=== PATIENT | male | born 1960 | race Caucasian/White ===

== ENCOUNTER → 2019-01-13 15:29 | Outpatient (CLI) | payer MEDICARE, MEDICAID, SELFPAY ==
--- NOTE | 2019-01-13 15:44 | CT_ITS ---
CT abdomen pelvis wo con INDICATION: Right flank pain ITS.REASON: RT SIDED LOW BACK PAIN,HEMATURIA ORDERING PHYSICIAN: Anders Hernandez MD PATIENT AGE: 58 years COMPARISON: CT abdomen September 2017 & May 2017 TECHNIQUE: No oral nor IV contrast utilized Axial images obtained with sagittal and coronal reformats. All CT scans at the facility use one or more dose reduction, viz: automated exposure control, ma/kV adjustment per patient size (including targeted exams where dose is matched to indication, i.e. head), or iterative reconstruction technique. FINDINGS: Lung bases are clear no active disease. Heart normal size. Abdomen/pelvis the lack of oral and IV contrast decreases sensitivity somewhat. Liver. No focal lesions. Diffuse fatty changes. Liver upper normal volume all... The generous length right lobe does measure 22 cm in length similar to previous study. Gallbladder. No calcified stones but suspect minimal sludge and debris. Spleen is enlarged measuring 16.5 cm length. Unchanged as prior study. Pancreas. Unremarkable on this noncontrast study. Stable. Stable Left Adrenal nodule/mass. Contains fat. 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 Bilobed character on coronal image. The lower portion is larger measuring up to 3.2 cm transverse 3.4 cm AP.. The upper portion smaller measuring 2.5 cm AP and height. Similar to previous study. This can be followed Right Adrenal. Stable. Although there is suggestion of a subtle stable 1 cm low-density adenoma its anterior aspect., Axial image 38, 39.. No appreciable change since September 2017 patient can be followed. TRACT : RIGHT KIDNEY: Tiny nonobstructive 2.2 mm calculus midportion right kidney. Otherwise right kidney collecting system appear normal. No hydronephrosis. Right ureter appears satisfactory to the bladder. Unremarkable. Mild stranding about right kidney similar to previous study LEFT KIDNEY small nonobstructive calculus midportion left kidney less than 3.5 mm Suspect a subtle 7 mm vague low-density cyst at mid left kidney. Just anterior to this is a small slightly hyperdense smudge like 8 mm focus ( axial image 64, coronal 41). No mass effect. Suspect reflects a small hemorrhagic cyst however is new since prior studies. Suggest follow-up CT protocol with contrast and delayed images within 6 months to confirm stable, or sooner if hematuria persists Left ureter is unremarkable. No retroperitoneal nor mesenteric nor pelvic adenopathy. Pelvis. Again note stable bilateral fat-containing inguinal hernias are also minimal amount of protrusion of the right aspect of the urinary bladder into the right inguinal hernia as before. Unchanged GI tract. Colonic diverticulosis. No diverticulitis. Moderate stool throughout the right and transverse colon.. No bowel dilatation or obstruction. Terminal ileum unremarkable. Low-lying cecum. Appendix normal. Small bowel unremarkable. Bones No remarkable osseous findings. Degenerative changes spine ... IMPRESSION:............ 1. No acute intra-abdominal or pelvic pathology. 2. Small punctate bilateral renal calculi;-but no urinary tract obstruction.. these small renal calculi are very slightly more evident than 2017 3. Left kidney there is a small 8 mm mild hyperdense smudge-like focus-likely small hemorrhagic cyst. This is become apparent since prior 2017 studies. Would suggest either renal ultrasound to confirm cyst; or if hematuria does persist with recommend follow-up CT protocol 6 months to confirm stability. 3.. Splenomegaly. Stable ... Liver. Diffuse Fatty changes, Borderline-to minimal hepatomegaly again noted. . 4. Colonic diverticulosis but no good evidence of diverticulitis. 5. Small stable bilateral inguinal hernias containing fat.
== END ==
PROVIDERS: PCP Internal Medicine Adolescent Medicine; Visit Provider Internal Medicine Adolescent Medicine
DX: R31.29 Other microscopic hematuria (principal); M54.5 Low back pain
CPT/HCPCS: 74176

== ENCOUNTER → 2019-04-02 12:03 | Outpatient (CLI) | payer MEDICARE, MEDICAID, SELFPAY ==
--- NOTE | 2019-04-02 12:12 | XR_ITS ---
XR chest 2V HISTORY: ITS.REASON: CHEST WALL PAIN ORDERING PHYSICIAN: Anders Hernandez MD PATIENT AGE: 58 years COMPARISON: 02/10/2013 FINDINGS: The cardiomediastinal silhouette and pulmonary vascularity are within normal limits. The lungs are clear without infiltrates, suspicious nodules, or pleural effusions. No acute bony abnormalities. IMPRESSION: Negative chest, no acute finding
== END ==
PROVIDERS: PCP Internal Medicine Adolescent Medicine; Visit Provider Internal Medicine Adolescent Medicine
DX: R07.89 Other chest pain (principal)
CPT/HCPCS: 71046

== ENCOUNTER → 2020-01-26 10:19 | Outpatient (CLI) | payer MEDICARE, MEDICAID, SELFPAY ==
--- NOTE | 2020-01-26 15:51 | PC.NURSE ---
[facility] was registered for a GXT stress bt was unable to complete due to Sally BALDERRAMA because patient has an abnormal EKG. Respiratory called portfolio director office to have them schedule a Lexiscan. Dr. Hernandez was notified.
== END ==
PROVIDERS: PCP Internal Medicine Adolescent Medicine; Visit Provider Internal Medicine Adolescent Medicine
DX: R07.9 Chest pain, unspecified (principal)

== ENCOUNTER → 2020-05-06 13:38 | Outpatient (CLI) | payer MEDICARE, MEDICAID, SELFPAY ==
--- NOTE | 2020-05-06 13:42 | CT_ITS ---
PROCEDURE: CT LUNG SCREENING CLINICAL INDICATION: H/O TOBACCO USE Sixty pack-year smoking history, asymptomatic for lung cancer COMPARISON: [facility] CT abdomen pelvis wo con from 01/13/2019 TECHNIQUE: The exam was performed on a GE Light Speed [address] scanner using 2.90 mGy CTDI. A low dose helical CT CHEST was performed on a multi-detector scanner. All CT scans at the facility use one or more dose reduction, viz: automated exposure control, ma/kV adjustment per patient size (including targeted exams where dose is matched to indication, i.e. head), or iterative reconstruction technique. The LDCT was performed in a facility that meets the criteria for the screening program. Data regarding this exam was submitted to ACR which is an approved registry. The order for this exam indicates that it came as a result of a lung cancer screening counseling shard decision-making visit that included all the elements required of such a visit including smoking cessation. The radiologist interpreting this exam meets the CMS criteria for the LDCT lung cancer screening program. The exam is reported using the Lung-RADS classification scale and reported to the ACR registry. NOTE: This study was performed for the specific purposes of lung cancer screening and is not an alternative to diagnostic chest CT. RADIATION DOSE: CTDI vol(CT dose Index-volume) = 2.90mG DLP (Dose Length Product) = 102.64 the mGcm Lung Rads Category: FINDINGS: 3 mm noncalcified nodule left apex image number 15. 3 mm nodule left upper lobe anteriorly image number 40 OTHER FINDINGS: Severe coronary artery calcifications. Changes of COPD. Bilateral adrenal enlargement. Mild thickening of the esophagus nonspecific. IMPRESSION: Lung rads category 2, benign Recommend annual screening LD CT Dictated by: Sidney Cornejo MD 05/12/2020 09:25 Electronically signed by Sidney Cornejo MD in [place] 05/12/2020 09:25
== END ==
PROVIDERS: PCP Internal Medicine Adolescent Medicine; Visit Provider Internal Medicine Adolescent Medicine
DX: Z87.891 Personal history of nicotine dependence (principal); Z12.2 Encounter for screening for malignant neoplasm of respiratory organs

== ENCOUNTER → 2020-08-09 11:50 | Outpatient (CLI) | payer MEDICARE, MEDICAID, SELFPAY ==
[2020-08-09 12:58] LABS: Chloride 103 mmol/L (98-107); Potassium 4.6 mmoL/L (3.5-5.1); Sodium 137 mmol/L (136-145)
[2020-08-09 13:00] LABS: Blood Urea Nitrogen 12 mg/dl (9-20); Estimated Glomerular Filt Rate 137 ml/min (>60); GFR (African American) 166 ML/MIN (>60)
[2020-08-09 13:01] LABS: Alanine Aminotransferase 25 U/L (12-78); Albumin Level 4.3 g/dl (3.5-5.0); Albumin/Globulin Ratio 1.5 (1.1-1.8); Alkaline Phosphatase 125 U/L (38-126); Anion Gap 13.6 mEq/L (5-15); Aspartate Amino Transferase 26 U/L (17-59); Bilirubin,Total 0.8 mg/dl (0.2-1.3); Calcium 9.4 mg/dl (8.4-10.2); Carbon Dioxide 25 mmol/L (22.0-30.0); Cholesterol 134 mg/dl (140-200); Globulin 2.8 g/dL (1.3-3.2); Glucose 154 mg/dl (74-100); Total Protein,Serum 7.1 g/dl (6.3-8.2); Triglycerides 370 mg/dl (30-150); VLDL Cholesterol 74 mg/dL (0-40)
[2020-08-09 13:02] LABS: Chol/HDL Ratio 4.3 (1-3.5); HDL Cholesterol 31 mg/dl (40-60)
[2020-08-09 13:04] LABS: Hemoglobin A1C 9.5 % (4.0-6.0)
== END ==
PROVIDERS: Visit Provider Internal Medicine Adolescent Medicine
DX: E11.9 Type 2 diabetes mellitus without complications (principal); E78.5 Hyperlipidemia, unspecified
CPT/HCPCS: 36415; 80053; 80061; 83036

== ENCOUNTER → 2020-09-10 15:16 | Outpatient (CLI) | payer MEDICARE, MEDICAID, SELFPAY ==
--- NOTE | 2020-09-10 15:31 | CT_ITS ---
PROCEDURE: CT ABDOMEN PELVIS WO CON CLINICAL INDICATION: LEFT FLANK PAIN Left flank pain with hematuria COMPARISON: CT ABDPELW/O CT ABD PELVIS W/O CONTRAST from 06/20/[address] abdomen pelvis wo con from 01/13/2019 TECHNIQUE: Axial images obtained with sagittal and coronal reformats. All CT scans at the facility use one or more dose reduction, viz: automated exposure control, ma/kV adjustment per patient size (including targeted exams where dose is matched to indication, i.e. head), or iterative reconstruction technique. FINDINGS: LOWER THORAX: Coronary artery calcification. Mild nonspecific thickening of the distal esophagus ABDOMEN & PELVIS: Fatty liver. There is a subtle area of decreased attenuation in the right hepatic lobe superiorly a image 35 series 601 at 7 mm nonspecific too small to categorize. The gallbladder has an unremarkable appearance. There is a subtle area of decreased attenuation in the central aspect of the spleen image 42 series 3 at 8 mm nonspecific not significantly changed. The left adrenal gland is enlarged containing fat and soft tissue density consistent with an adrenal myelolipoma. This measures up to 5 cm in transverse dimension and is slightly larger previously measuring 4.3 cm transverse. The right adrenal gland is slightly enlarged not significantly changed and may be due to adenomatous involvement. There are nonobstructing bilateral renal calculi. Previously noted hyperdensity in the upper pole left kidney is not demonstrated on today's study the pancreas has an unremarkable appearance. There is a small cyst projecting off the medial aspect of the right kidney measuring 1 cm. No evidence of appendicitis. There is diverticulosis of the descending and sigmoid colon. There is a mild amount of retained colonic feces. No evidence of diverticulitis. There are bilateral inguinal hernias containing fat. A small protrusion of the right side of the urinary bladder extends into the right inguinal hernia. No acute bony findings. There is a small sclerotic focus in the right femur in the intertrochanteric region. This is slightly more dense compared to the previous exams but not significantly changed in size possibly due to developing bone island. Left ileo bone island noted. IMPRESSION: 1. Left adrenal myelolipoma slightly more prominent. 2. Nonobstructing bilateral renal calculi. 3. Bilateral inguinal hernias. A small protrusion of the urinary bladder on the right extends into the right inguinal hernia. 4. Other nonacute findings as described above. Dictated by: Sidney Cornejo MD 09/10/2020 16:16 Sidney Cornejo MD in [place] 09/10/2020 16:16
[2020-09-10 15:47] LABS: Basophils # 0.1 K/mm3 (0-0.2); Basophils % 0.8 % (0.1-2.0); Eosinophils # 0.2 K/mm3 (0.0-0.4); Eosinophils % 1.5 % (0.1-12.0); Hemoglobin 15.8 g/dL (14.1-18.0); Lymphocytes # 2.8 K/mm3 (0.7-4.5); Lymphocytes % 28.8 % (10-50); Mean Corpuscular Hemoglobin 27.5 pg (27.0-31.2); Mean Corpuscular Volume 83.4 fl (80-94); Mean Platelet Volume 8.9 fl (7.4-10.4); Monocytes # 0.6 K/mm3 (0.1-1.0); Monocytes % 6.3 % (1.7-9.3); Neutrophils # 6.2 K/mm3 (1.8-7.8); Neutrophils % 62.5 % (37.0-80.0); Platelet Count 218 K/mm3 (142-424); Red Blood Count 5.75 M/mm3 (4.60-6.20); Red Cell Distribution Width 15.2 % (11.5-17.5); White Blood Count 9.8 K/mm3 (4.8-10.8)
[2020-09-10 18:07] LABS: Chloride 100 mmol/L (98-107); Potassium 4.4 mmoL/L (3.5-5.1); Sodium 135 mmol/L (136-145)
[2020-09-10 18:10] LABS: Alanine Aminotransferase 26 U/L (12-78); Albumin Level 4.5 g/dl (3.5-5.0); Albumin/Globulin Ratio 1.6 (1.1-1.8); Alkaline Phosphatase 115 U/L (38-126); Anion Gap 14.4 mEq/L (5-15); Aspartate Amino Transferase 27 U/L (17-59); Bilirubin,Total 0.7 mg/dl (0.2-1.3); Blood Urea Nitrogen 17 mg/dl (9-20); Calcium 9.8 mg/dl (8.4-10.2); Carbon Dioxide 25 mmol/L (22.0-30.0); Estimated Glomerular Filt Rate 115 ml/min (>60); GFR (African American) 139 ML/MIN (>60); Globulin 2.9 g/dL (1.3-3.2); Glucose 104 mg/dl (74-100); Lipase 60 U/L (23-300); Total Protein,Serum 7.4 g/dl (6.3-8.2)
== END ==
PROVIDERS: Visit Provider Internal Medicine Adolescent Medicine
DX: R10.9 Unspecified abdominal pain (principal)
CPT/HCPCS: 36415; 74176; 80053; 83690; 85025

== ENCOUNTER → 2021-03-10 14:39 | Outpatient (CLI) | payer MEDICARE, MEDICAID, SELFPAY ==
--- NOTE | 2021-03-10 15:35 | CT_ITS ---
PROCEDURE: CT ABDOMEN PELVIS WO CON CLINICAL INDICATION: DORSALGIA,UNSPECIFIED Right-sided flank pain COMPARISON: CT CT ABDOMEN PELVIS WO CON from 09/10/2020 TECHNIQUE: Axial images obtained with sagittal and coronal reformats. All CT scans at the facility use one or more dose reduction, viz: automated exposure control, ma/kV adjustment per patient size (including targeted exams where dose is matched to indication, i.e. head), or iterative reconstruction technique. FINDINGS: LOWER THORAX: Coronary artery calcifications are present. ABDOMEN & PELVIS: Fatty liver. No focal liver lesion identified. The spleen and pancreas have an unremarkable unenhanced appearance. There is a lobulated fat containing left adrenal mass which measures approximately 5 cm transverse, 5 cm AP, and at least 4 cm cephalad caudad consistent with an adrenal myelolipoma not significantly changed. There are nonobstructing bilateral renal calculi with a 4 mm stone in the upper pole of the right kidney and a 5 mm stone in the mid polar region of the left kidney. No intestinal obstruction or free air. No evidence of appendicitis. There is colonic diverticulosis but no evidence of diverticulitis. There are small bilateral inguinal hernias. Left inguinal hernia contains fat. The right inguinal hernia contains a knuckle of the urinary bladder. This is similar when compared to the previous exam. There are degenerative changes in the lumbar spine. Suspect small bone islands within the pelvis. IMPRESSION: 1. Overall no change with no acute finding. 2. No change fat containing left adrenal mass consistent with an adrenal myelolipoma 3. Nonobstructing bilateral renal calculi. 4. Small bilateral inguinal hernias. The right inguinal hernia contains a small protrusion of the urinary bladder in the left hernia contains fat. Dictated by: Sidney Cornejo MD 03/10/2021 16:26 Sidney Cornejo MD in [place] 03/10/2021 16:26
== END ==
PROVIDERS: PCP Internal Medicine Adolescent Medicine; Visit Provider Internal Medicine Adolescent Medicine
DX: R10.9 Unspecified abdominal pain (principal); M54.9 Dorsalgia, unspecified
CPT/HCPCS: 74176

== ENCOUNTER → 2021-06-09 11:58 | Outpatient (CLI) | payer MEDICARE, MEDICAID, SELFPAY ==
[2021-06-09 13:13] LABS: Hemoglobin A1C 8.7 % (4.0-6.0)
[2021-06-09 13:27] LABS: Anion Gap 15.2 mEq/L (5-15); Blood Urea Nitrogen 13 mg/dl (9-20); Carbon Dioxide 28 mmol/L (22.0-30.0); Chloride 99 mmol/L (98-107); Estimated Glomerular Filt Rate 114 ml/min (>60); GFR (African American) 138 ML/MIN (>60); Potassium 5.2 mmoL/L (3.5-5.1); Sodium 137 mmol/L (136-145)
[2021-06-09 13:28] LABS: Alanine Aminotransferase 48 U/L (12-78); Albumin Level 4.5 g/dl (3.5-5.0); Albumin/Globulin Ratio 1.6 (1.1-1.8); Alkaline Phosphatase 140 U/L (38-126); Aspartate Amino Transferase 49 U/L (17-59); Bilirubin,Total 0.9 mg/dl (0.2-1.3); Calcium 9.3 mg/dl (8.4-10.2); Chol/HDL Ratio 6.1 (1-3.5); Cholesterol 189 mg/dl (140-200); Globulin 2.8 g/dL (1.3-3.2); Glucose 258 mg/dl (74-100); HDL Cholesterol 31 mg/dl (40-60); Total Protein,Serum 7.3 g/dl (6.3-8.2)
[2021-06-09 13:39] LABS: Direct LDL Cholesterol 65.34 mg/dL (100-129)
[2021-06-09 13:40] LABS: Triglycerides 661 mg/dl (30-150)
== END ==
PROVIDERS: Visit Provider Internal Medicine Adolescent Medicine
DX: E11.9 Type 2 diabetes mellitus without complications (principal); Z79.84 Long term (current) use of oral hypoglycemic drugs
CPT/HCPCS: 36415; 80053; 80061; 83036

== ENCOUNTER → 2021-06-20 13:11 | Outpatient (CLI) | payer MEDICARE, MEDICAID, SELFPAY ==
--- NOTE | 2021-06-20 13:11 | CT_ITS ---
PROCEDURE: CT ABDOMEN PELVIS WO CON CLINICAL INDICATION: back pain Low back pain Bilateral flank pain COMPARISON: CT ABDPELW/O CT ABD PELVIS W/O CONTRAST from 06/20/[address] abdomen pelvis wo con from 01/13/[address] ABDOMEN PELVIS WO CON from 03/10/2021 TECHNIQUE: Axial images obtained with sagittal and coronal reformats. All CT scans at the facility use one or more dose reduction, viz: automated exposure control, ma/kV adjustment per patient size (including targeted exams where dose is matched to indication, i.e. head), or iterative reconstruction technique. FINDINGS: LOWER THORAX: Aortic valve and coronary artery calcifications. ABDOMEN & PELVIS: Fatty liver. No focal liver lesion identified. There is bilateral adrenal enlargement. Mixed fatty and soft tissue mass involves the left adrenal gland consistent with an adrenal myelolipoma at approximately 5 x 5 cm not significantly changed. There are nonobstructing bilateral renal calculi with a 3 mm stone in the upper pole on the right and 4 mm stone in the mid polar region on the left. There is a small area of decreased attenuation in the mid to lower aspect of the right kidney measuring approximately 7 mm with a faint peripheral rim of calcification. Which is not significantly changed. There is mild stranding of the perinephric renal fat. No intestinal obstruction or free air. No evidence of appendicitis. There is colonic diverticulosis but no evidence of diverticulitis. There is some mild thickening of the rectum. This is nonspecific. There are small bilateral fat containing inguinal hernias. The right aspect of the urinary bladder anteriorly extends into the right inguinal hernia at the hernia orifice. There are degenerative changes in the lower thoracic and lumbar spine.. There is mild sclerosis of the SI joints. A small sclerotic lesion involves the left ilium lower aspect measuring approximately 10 mm consistent with a small bone island. Faint area of increased density is present in the intertrochanteric region of the right femur nonspecific not significantly changed. IMPRESSION: 1. No change left adrenal mass consistent with an adrenal myelolipoma. 2. Bilateral renal calculi. No ureteral calculi or hydronephrosis. 3. Complex right renal lesion at approximately 7 mm with central decreased attenuation and a small peripheral rim of calcification. This may represent a complex renal cyst or neoplasm. Further evaluation could be obtained with renal CT without and with contrast. Continued 3 month follow-up is suggested. 4. Bilateral inguinal hernias containing fat. The anterior right aspect of the urinary bladder does extend into the orifice of the right inguinal hernia. Dictated by: Sidney Cornejo MD 06/21/2021 08:22 Sidney Cornejo MD in [place] 06/21/2021 08:22
== END ==
PROVIDERS: PCP Internal Medicine Adolescent Medicine; Visit Provider Urology
DX: M54.9 Dorsalgia, unspecified (principal); M54.5 Low back pain; N20.0 Calculus of kidney; E27.8 Other specified disorders of adrenal gland
CPT/HCPCS: 74176

== ENCOUNTER → 2021-07-21 11:56 | Outpatient (CLI) | payer MEDICARE, MEDICAID, SELFPAY ==
--- NOTE | 2021-07-21 | CA_ITS ---
APPROVED REPORT Exam: Pharmacologic Technologist: Lisa Sotelo, Ht: 5 ft 8 in Wt: 228 lbs BSA: 2.16 m2 HR: 78 bpm BP: 139/76 mmHg Medical History Medications: Gabapentin,,,,, Citalopram,,,,, TAMSULOSIN,,,,, Gemfibrozil,,,,, JaRDiance,,,,, AtorvaASTATIN,,,,, CefdinER,,,,, Stress Test Details Test: LEXISCAN HR Resting HR: 80 bpm Max Heart Rate (APMHR): 158.860376 bpm Max HR Achieved: 106 bpm Target HR (85% APMHR): 134.709213 bpm % of APMHR: 67.09 Recovery HR: 90 bpm BP Resting BP: 139/76 mmHg Max BP: 151/72 mmHg Recovery BP: 137.0/74.0 mmHg ECG Resting ECG: NSR, ST-T abns inferiorly and laterally Clinical Exercise duration: 04:00 min Highest Stage Achieved: Exercise capacity: 1.0 METs Stress ECG Conclusion Symptoms: Mild SOA and malaise, No CP. Arrhythmias/Ectopy: None ST-T Changes: Exaggeration of baseline ST-T abns. Conclusion: Non-diagnostic Lexiscan stress. Myoview images reported separately. Electronically signed by : Hamlet Ernst MD 07/21/2021 15:04:40
--- NOTE | 2021-07-21 11:59 | NM_ITS ---
APPROVED REPORT Exam: Nuclear Stress Test Indication: Chest pain, SOB, DM, Tobacco use Patient Location: Outpatient Stress Tech: Conchis Ly [place] Tech:CHASE Alcantar RT(R)(N) Ht: 5 ft 8 in Wt: 227 lbs HR: 80 bpm BP: 139/76 mmHg BSA: 2.16 m2 BMI: 34.5 History: Chest pain, SOB, DM, Tobacco use Procedure: Patient received a 0.4 mg of intravenous Lexiscan, resting heart rate 80 bpm, resting blood pressure 139/76 mmHg, with Lexiscan maximum heart rate achived was 106 bpm which is Less than 85 % of the maximum predicted heart rate and blood pressure was 151/72 mmHg. With Lexiscan, patient denied any complaint of chest pain. Electrocardiogram Resting electrocardiogram shows sinus rhythm, with Lexiscan there is less than 1.[address] segment depression noted from the baseline EKG. The EKG portion of the Lexiscan Myoview is nondiagnostic. Cardiac Stress and Resting SPECT Images: Cardiac Stress and Resting SPECT images were obtained using technetium 99m Myoview 32.8 mCi stress and 10.60 mCi at rest. Gated SPECT for analysis of segmental wall motion and calculation of the ejection fraction also done. Prone images were also obtained. Cardiac stress and resting SPECT images show mild fixed defect in the inferior wall with normal contractility gated SPECT is likely secondary to soft tissue attenuation, no reversible ischemia seen. Computer derived ejection fraction is 54% with no regional wall motion abnormality, right ventricle is normal size and contractility. Conclusion: 1. The EKG portion of the Lexiscan is nondiagnostic. 2. Diagnostic evidence of reversible ischemia seen, computer derived ejection fraction is 54% with no regional wall motion abnormality, right ventricle is normal size and contractility. 3. Likely normal Lexiscan Myoview study. Electronically signed by : Halmet Ernst MD 07/21/2021 16:16:07
--- NOTE | 2021-07-21 15:23 | HMH.ITSHM ---
Current Home Medications as stated by this patient Annie Garcia or b2b sales representative. []GEMFIBROZIL TAMSULOSIN GABAPENTIN EMPAGLIFLOZIN CITALOPRAM CEFDINIR ATORVASTATIN
== END ==
PROVIDERS: PCP Internal Medicine Adolescent Medicine; Visit Provider Internal Medicine Adolescent Medicine
DX: I20.8 Other forms of angina pectoris (principal)
CPT/HCPCS: 78452; 93017; A9502; J2785

== ENCOUNTER → 2021-11-03 09:25 | Outpatient (CLI) | payer MEDICARE, MEDICAID, SELFPAY ==
[2021-11-03 09:52] LABS: Basophils # 0.1 K/mm3 (0-0.2); Basophils % 1.2 % (0.1-2.0); Eosinophils # 0.2 K/mm3 (0.0-0.4); Eosinophils % 1.8 % (0.1-12.0); Hemoglobin 15.5 g/dL (14.1-18.0); Lymphocytes # 2.2 K/mm3 (0.7-4.5); Lymphocytes % 22.2 % (10-50); Mean Corpuscular HGB Conc 34.4 g/dL (31.8-35.4); Mean Corpuscular Hemoglobin 27.4 pg (27.0-31.2); Mean Corpuscular Volume 79.7 fl (80-94); Mean Platelet Volume 9.3 fl (7.4-10.4); Monocytes # 0.6 K/mm3 (0.1-1.0); Monocytes % 5.6 % (1.7-9.3); Neutrophils # 6.8 K/mm3 (1.8-7.8); Neutrophils % 69.2 % (37.0-80.0); Platelet Count 231 K/mm3 (142-424); Red Blood Count 5.64 M/mm3 (4.60-6.20); Red Cell Distribution Width 15.4 % (11.5-17.5); White Blood Count 9.8 K/mm3 (4.8-10.8)
[2021-11-03 10:44] LABS: Alanine Aminotransferase 45 U/L (12-78); Albumin Level 4.2 g/dl (3.5-5.0); Albumin/Globulin Ratio 1.6 (1.1-1.8); Alkaline Phosphatase 153 U/L (38-126); Anion Gap 10.5 mEq/L (5-15); Aspartate Amino Transferase 44 U/L (17-59); Bilirubin,Total 0.9 mg/dl (0.2-1.3); Blood Urea Nitrogen 12 mg/dl (9-20); Calcium 9.2 mg/dl (8.4-10.2); Carbon Dioxide 28 mmol/L (22.0-30.0); Chloride 98 mmol/L (98-107); Chol/HDL Ratio 5.7 (1-3.5); Cholesterol 183 mg/dl (140-200); Estimated Glomerular Filt Rate 137 ml/min (>60); GFR (African American) 165 ML/MIN (>60); Globulin 2.6 g/dL (1.3-3.2); Glucose 266 mg/dl (74-100); HDL Cholesterol 32 mg/dl (40-60); Potassium 4.5 mmoL/L (3.5-5.1); Sodium 132 mmol/L (136-145); Total Protein,Serum 6.8 g/dl (6.3-8.2)
[2021-11-03 10:49] LABS: Triglycerides 454 mg/dl (30-150)
[2021-11-03 10:54] LABS: NT Pro Brain Natriuretic Pep. 498 pg/mL (0-125)
[2021-11-03 10:55] LABS: Direct LDL Cholesterol 76.51 mg/dL (100-129)
[2021-11-03 11:15] LABS: Thyroid Stimulating Hormone 3.65 uIU/mL (0.465-4.68)
[2021-11-03 11:56] LABS: Hemoglobin A1C 10.6 % (4.0-6.0)
== END ==
PROVIDERS: Visit Provider Internal Medicine Adolescent Medicine
DX: R06.02 Shortness of breath (principal); E11.9 Type 2 diabetes mellitus without complications; E78.5 Hyperlipidemia, unspecified
CPT/HCPCS: 36415; 80053; 80061; 83036; 83880; 84443; 85025

== ENCOUNTER → 2021-11-07 09:42 | Outpatient (CLI) | payer MEDICARE, MEDICAID, SELFPAY ==
[2021-11-07 10:02] LABS: Basophils # 0.1 K/mm3 (0-0.2); Basophils % 0.9 % (0.1-2.0); Eosinophils # 0.2 K/mm3 (0.0-0.4); Eosinophils % 1.8 % (0.1-12.0); Hematocrit 44.2 % (42.0-52.0); Hemoglobin 15.3 g/dL (14.1-18.0); Lymphocytes # 2.3 K/mm3 (0.7-4.5); Lymphocytes % 22.6 % (10-50); Mean Corpuscular HGB Conc 34.6 g/dL (31.8-35.4); Mean Corpuscular Hemoglobin 27.7 pg (27.0-31.2); Mean Corpuscular Volume 80.2 fl (80-94); Mean Platelet Volume 9.2 fl (7.4-10.4); Monocytes # 0.5 K/mm3 (0.1-1.0); Monocytes % 5.2 % (1.7-9.3); Neutrophils % 69.5 % (37.0-80.0); Platelet Count 230 K/mm3 (142-424); Red Blood Count 5.51 M/mm3 (4.60-6.20); Red Cell Distribution Width 14.6 % (11.5-17.5)
[2021-11-07 10:50] LABS: Chloride 96 mmol/L (98-107); Potassium 4.5 mmoL/L (3.5-5.1); Sodium 133 mmol/L (136-145)
[2021-11-07 10:53] LABS: Blood Urea Nitrogen 11 mg/dl (9-20); Estimated Glomerular Filt Rate 114 ml/min (>60); GFR (African American) 138 ML/MIN (>60)
[2021-11-07 10:54] LABS: Anion Gap 12.5 mEq/L (5-15); Carbon Dioxide 29 mmol/L (22.0-30.0); Glucose 288 mg/dl (74-100)
== END ==
PROVIDERS: Visit Provider Urology
DX: E11.9 Type 2 diabetes mellitus without complications (principal); E78.5 Hyperlipidemia, unspecified; I20.9 Angina pectoris, unspecified; R06.00 Dyspnea, unspecified; R07.9 Chest pain, unspecified; R42 Dizziness and giddiness; R94.31 Abnormal electrocardiogram [ECG] [EKG]; Z01.812 Encounter for preprocedural laboratory examination; Z11.52 Encounter for screening for COVID-19
CPT/HCPCS: 36415; 80048; 85025; C9803; U0003; U0005

== ENCOUNTER 2021-11-08 07:47 | Day surgery (SDC) | payer MEDICARE, MEDICAID, SELFPAY ==
[2021-11-08] VITALS (15 sets, daily range): BP systolic 93–156; BP diastolic 59–97; PULSE 72–90; RESP 16–20; TEMP 36.9; O2SAT 93–97; BMI 34.0
--- NOTE | 2021-11-08 | IR_ITS ---
APPROVED REPORT Patient Location: Outpatient PROCEDURES Left heart catheterization Left ventriculogram Selective coronary angiogram Drug-eluting stent deployment to the mid dominant right coronary INDICATION Coronary artery disease, Unacceptable angina pectoris Informed consent was obtained prior to the procedure. COMPLICATIONS NONE Estimated Blood Loss: LESS THAN 10 ML TECHNIQUE One percent lidocaine used to anesthetize the right anterior aspect of the wrist. The right radial artery was accessed via the Seldinger technique. A 6 Maori sheath was placed in the right radial artery. 2.5 mg of verapamil, 800 mcg of nitroglycerin, 1mg Lidocaine and 5000 U Heparin were given through the arterial sheath. The 51.com 1 catheter was also used to perform left heart catheterization, left ventriculogram and selective coronary angiogram. At the end of the procedure the guide catheter was placed in the dominant right coronary artery and a Choice PT extra-support wire was used to attempt recannulization of the chronically occluded artery. The wire very easily passed through the chronic occlusion therefore therapeutic heparin was administered giving a therapeutic ACT. A 3.5 x 18 mm resolute [place] stent was deployed at 18 noemy reducing the chronic occlusion to 0%. OSCAR 0 flow was present at the beginning of the procedure with OSCAR-3 flow at the end of the procedure. Then the procedure the apparatus was removed the sheath was removed good hemostasis was achieved using TR banding patient was transferred to the postop putting in stable condition ANGIOGRAPHIC RESULTS The left main artery Normal The left anterior descending artery Is proximally normal then has a mid vessel 40 to 50% concentric stenosis between the first and second septal apprenticeship representative. The circumflex artery Nondominant and has a 50% stenosis in a 2.25 mm first obtuse marginal artery The right coronary artery Is dominant and chronically occluded just distal to the RV marginal. The distal vessel has scant [id number] collaterals The MANCIA ventriculogram reveals Preserved at 55% The left ventricular end-diastolic pressure 10 mmHg IMPRESSION Moderate coronary artery disease in the mid LAD and mid small to moderate-sized first obtuse marginal artery Chronically occluded dominant right coronary artery Successful percutaneous revascularization of a chronically occluded right coronary artery 100% occlusion reduced to 0% with 1 drug-eluting stent Preserved ejection fraction with normal LVEDP PLAN 1. Brilinta 90 twice daily plus aspirin 81 mg daily 2. High intensity statin therapy to achieve LDL of 55 3. Avoidance of tobacco products 4. Cardiac rehabilitation 5. Risk factor modification 6. Avoidance of tobacco products Electronically signed by : Mio Samuel MD 11/08/2021 11:33:15
--- NOTE | 2021-11-08 07:52 | CA_ITS ---
APPROVED REPORT EXAM: Comprehensive 2D, Doppler, and color-flow Echocardiogram Railroad Cook: Helena Bowers RT(R) Ht: 5 ft 8 in Wt: 224lbs BSA: 2.14 BP: 136/75 mmHg Indications: CP, COPD, smoker, DM, SOB, hyperlipidemia, dizziness, abn EKG 2D Dimensions LVOT 2.05 cm (M/F) 1.5-2.5 LVEF (Crowley's) 53.80 % M: 52 - 72 LV Volume 115.70 mL M: 62 - 150 LV Volume Index 54.06 mL/m2 M: 34 - 74 LA Volume 30.30 mL LA Volume Index 14.15 mL/m2 (M/F) 16-34 M-Mode Dimensions RVDd 3.10 cm (0.9-2.6) LA Diam 3.62 cm (1.9-4.0) LVDd 4.14 cm (3.5-5.7) Ao Diam 2.65 cm (2.0-3.7) LVDs 3.46 cm (3.5-5.7) IVSd 0.86 cm (0.6-1.1) PWd 0.89 cm (0.6-1.1) EF (Teich) 34.80% FS 16.40% EDV (Teich) 75.90 mL ESV (Teich) 49.50 mL LV Diastology E Decel Time 220.00 (160-240 msec) E/A Ratio 1.1 MED E' 5.80 (< 7 cm/sec) E'/MED E' Ratio 16.81 (>14) LAT E' 7.60 (<10 cm/sec) E/LAT E' Ratio 12.83 (>14) Aortic Valve LVOT Max 118.00 (70-110 cm/s) LVOT VTI 24.13 cm AoV Peak Liam. 182.00 (50-130 cm/s) AO Peak GR. 13.20 mmHg AO Mean GR. 6.40 (<5 mmHg) AO VTI 34.41 (18-25 cm) GRABIEL (VTI) 2.31 (2.5-4.5 cm2) Mitral Valve MV E Max Liam. 98.00 (40-130 cm/s) MV A Velocity 88.00 (40-130 cm/s) E/A Ratio 1.11 MV Decel. Time 220.00 (160-240 ms) MV PHT 64.00 ms Left Ventricle Left atrium is mildly enlarged, left ventricle is normal size, mild concentric left ventricular hypertrophy, visually estimated ejection fraction 55% with no regional wall motion abnormality, grade 1 diastolic dysfunction seen without tissue Doppler evidence of raise left atrial pressure. Right Ventricle Right atrium and right ventricle are mildly enlarged with normal contractility. Aortic Valve Aortic valve is thickened and calcified without Doppler evidence of aortic stenosis or aortic insufficiency. Mitral Valve Mitral valve is grossly normal, there is trace mitral regurgitation. Tricuspid Valve Tricuspid grossly normal, there is trace tricuspid regurgitation, tricuspid regurgitation jet velocity is inadequate for calculation of the right ventricular systolic pressure. Pulmonic Valve Pulmonic valve is poorly visualized. Great Vessels Aortic root is normal size. Inferior vena cava normal size with normal inspiratory collapse. Pericardium No significant pericardial effusion noted. Conclusion #1. Mild biatrial enlargement, normal left ventricular size, mild concentric left ventricular hypertrophy, visually estimated ejection fraction 55% with no regional wall motion abnormality, grade 1 diastolic dysfunction seen without tissue Doppler evidence of raise left atrial pressure. #2. Mildly enlarged right ventricle with normal contractility. #3. Trace mitral and tricuspid regurgitation. #4. No significant pericardial effusion noted. #5. Inferior vena cava normal size with normal inspiratory collapse. Electronically signed by : Hamlet Ernst MD 11/08/2021 19:28:57
[2021-11-08 13:26] LABS: CATHL Activated Clotting Time 267 SEC (74-125)
--- NOTE | 2021-11-08 15:00 | HMH.PHACLD ---
Annie Garcia has received discharge medication counseling on the following medications: PATIENT IS CURRENTLY TAKING ATORVASTATIN 80 MG HS. ADDING BRILINTA 90 MG BID, ASPIRIN 81 MG DAILY, BISOPROLOL 5 MG DAILY, AND LOSARTAN 25 MG DAILY POST STENTING.
== END 2021-11-08 15:05 | disposition home or self-care (01) ==
LOC: CATHLAB 07:49
PROVIDERS: PCP Internal Medicine Adolescent Medicine; Visit Provider Internal Medicine
DX: E11.9 Type 2 diabetes mellitus without complications (principal); E78.5 Hyperlipidemia, unspecified; I25.110 Atherosclerotic heart disease of native coronary artery with unstable angina pectoris; R06.00 Dyspnea, unspecified; R07.9 Chest pain, unspecified; R42 Dizziness and giddiness; R94.31 Abnormal electrocardiogram [ECG] [EKG]; F17.210 Nicotine dependence, cigarettes, uncomplicated; Z79.01 Long term (current) use of anticoagulants; Z79.899 Other long term (current) drug therapy; I10 Essential (primary) hypertension; Z79.84 Long term (current) use of oral hypoglycemic drugs; I25.82 Chronic total occlusion of coronary artery
CPT/HCPCS: 85347; 92928; 93306; 93458; 99152; C1725; C1769; C1876; C9600; J1644; Q9967

== ENCOUNTER 2022-09-04 18:30 | Observation (INO) | payer MEDICARE, MEDICAID, SELFPAY ==
[2022-09-04 17:43] VITALS: BP 154/87; PULSE 103; RESP 16; TEMP 37.2; O2SAT 98; BMI 34.8
--- NOTE | 2022-09-04 19:28 | PC.NURSE ---
pt ambulated to floor @ 191
[2022-09-04 19:34] LABS: Basophils # 0.2 K/mm3 (0-0.2); Basophils % 2.4 % (0.1-2.0); Eosinophils # 0.2 K/mm3 (0.0-0.4); Eosinophils % 2.4 % (0.1-12.0); Hemoglobin 14.9 g/dL (14.1-18.0); Lymphocytes # 2.5 K/mm3 (0.7-4.5); Lymphocytes % 24.5 % (10-50); Mean Corpuscular HGB Conc 34.6 g/dL (31.8-35.4); Mean Corpuscular Hemoglobin 28.7 pg (27.0-31.2); Mean Corpuscular Volume 82.9 fl (80-94); Mean Platelet Volume 9.3 fl (7.4-10.4); Monocytes # 0.4 K/mm3 (0.1-1.0); Monocytes % 4.1 % (1.7-9.3); Neutrophils # 6.7 K/mm3 (1.8-7.8); Neutrophils % 66.6 % (37.0-80.0); Platelet Count 210 K/mm3 (142-424); Red Blood Count 5.19 M/mm3 (4.60-6.20); Red Cell Distribution Width 15.5 % (11.5-17.5); White Blood Count 10.1 K/mm3 (4.8-10.8)
[2022-09-04 19:36] LABS: Chloride 98 mmol/L (98-107); Potassium 3.9 mmoL/L (3.5-5.1); Sodium 133 mmol/L (136-145)
[2022-09-04 19:39] LABS: Anion Gap 13.9 mEq/L (5-15); Blood Urea Nitrogen 7 mg/dl (9-20); Calcium 8.5 mg/dl (8.4-10.2); Carbon Dioxide 25 mmol/L (22.0-30.0); Creatinine Clearance Estimated 111 mL/min (50-200); Estimated Glomerular Filt Rate 168 ml/min (>60); GFR (African American) 203 ML/MIN (>60); Glucose 374 mg/dl (74-100); Magnesium 1.6 mg/dl (1.6-2.3)
[2022-09-04 20:00] VITALS: BP 137/75; PULSE 100; PULSE 95; RESP 16; TEMP 36.7; O2SAT 97
[2022-09-04 20:43] LABS: POC Glucose,Bedside 332 (70-110)
[2022-09-04 21:03] LABS: Troponin I < 0.01 ng/ml (0.00-0.034)
[2022-09-05] VITALS (20 sets, daily range): BP systolic 113–159; BP diastolic 60–81; PULSE 70–90; RESP 16–22; TEMP 36.3–36.7; O2SAT 95–100; BMI 34.7
--- NOTE | 2022-09-05 | IR_ITS ---
APPROVED REPORT Patient Location: Inpatient Cut Filer: CHASE Lai RT (R) PROCEDURES Left heart catheterization Left ventriculogram Selective coronary angiogram Drug-eluting stent deployment to the proximal and mid LAD INDICATION Coronary artery disease, Unstable angina Informed consent was obtained prior to the procedure. COMPLICATIONS None Estimated Blood Loss: Less than 10 mls TECHNIQUE One percent lidocaine used to anesthetize the right anterior aspect of the wrist. The right radial artery was accessed via the Seldinger technique. A 6 Maldivian sheath was placed in the right radial artery. 2.5 mg of verapamil, 800 mcg of nitroglycerin, 1mg Lidocaine and 5000 U Heparin were given through the arterial sheath. The papa catheter was also used to perform left heart catheterization, left ventriculogram and selective coronary angiogram. At the end the diagnostic angiogram therapeutic heparin was administered giving a therapeutic ACT and the guide catheter was placed in the left main artery followed by a Choice PT extra-support wire. A 3 mm x 38 mm resolute Stefan stent was placed throughout the proximal to mid LAD and deployed at 22 noemy reducing the severe stenosis to 0%. OSCAR-3 flow was present before and after the procedure. At the end the procedure the apparatus was removed the sheath was removed and hemostasis was achieved using TR banding patient was transferred to the postop putting a stable addition ANGIOGRAPHIC RESULTS The left main artery Normal The left anterior descending artery Has proximal 10% luminal irregularities followed by mid vessel concentric 70 to 80% stenosis flanked by 40 and 50% stenoses The circumflex artery Is nondominant and gives rise to a large first obtuse marginal artery which has a proximal 60 mid vessel 60 to 70% and a distal 50% stenosis The right coronary artery Is a dominant vessel and has a mid vessel 30 to 40% concentric stenosis. The distal right coronary artery stent is widely patent with excellent proximal distal transitioning. The posterior descending artery is 2 mm in diameter and has 50 to 60% stenoses The MANCIA ventriculogram reveals Normal 60% The left ventricular end-diastolic pressure 10 to 15 mmHg IMPRESSION Severe mid LAD disease as described above with successful stenting reducing all disease to less than 10% with 1 contiguous drug-eluting stent Normal ejection fraction Borderline LVEDP PLAN 1. Dual antiplatelet therapy 2. Risk factor modification 3. Cardiac rehabilitation 4. LDL less than 55 to be achieved with high intensity statin 5. Continue medical management for the circumflex artery. 6. If patient continues to have angina pectoris I did recommend a stress test to determine if the circumflex artery stenosis has hemodynamic significance I would also recommend maximizing antianginal medications Electronically signed by : Mio Samuel MD 09/05/2022 14:21:43
[2022-09-05 00:17] LABS: Troponin I < 0.01 ng/ml (0.00-0.034)
--- NOTE | 2022-09-05 05:33 | PC.NURSE ---
pt is A&OX4. ambulates to and from bathroom independently. no complaints of chest pain since arrival. NSR on tele. FSBS of 292, insulin given per mar. CB in reach.
[2022-09-05 05:54] LABS: POC Glucose,Bedside 292 (70-110)
--- NOTE | 2022-09-05 08:20 | EXP.HP ---
History of Present Illness *Admission Date: 09/04/22 *Reason for visit:: Chest pain *History of present illness: 62-year-old white male with history of poorly controlled diabetes, coronary disease with stent placement in the past and a history of heavy nicotine dependence who presented to my office ostensibly for an abscess and cyst underneath his right axilla. However he noted in the visit that he was having chest pains that were in his substernal area and radiating into his left arm. He stated that they were not really exercise associated but they felt just like they did before I got my stent. EKG showed baseline changes but also some new ST/T wave nonspecific changes in the inferior leads and he was admitted to hospital for angina work-up and cardiology consultation. [facility] Medical History (Updated 09/05/22 @ 08:23 by Anders Hernandez MD) CAD (coronary artery disease) Diabetes mellitus, type 2 Dyspnea HTN (hypertension) Surgical History (Updated 09/04/22 @ 20:21 by Cherri Montes RN) History of knee replacement History of right heart catheterization (RHC) Family History (Updated 09/04/22 @ 20:21 by Cherri Montes RN) Family history of acute heart failure Family history of cancer Social History Smoking Status: Current every day smoker tobacco type: cigarettes packs per day: 1 second hand exposure: No alcohol intake: never substance use type: denies use current occupational status: unemployed Travel in the last 8 weeks: Inside the [place] household members: significant other housing: house current occupational exposures/hazards: No Review of Systems Review of Systems Review of systems:: pertinent systems reviewed and negative unless documented below Meds Home Medications and Allergies Home Medications Medication Instructions Recorded Confirmed Type atorvastatin 80 mg tablet 80 mg PO HS Cholesterol 02/12/20 09/05/22 History citalopram 20 mg tablet 20 mg PO DAILY Depression 02/12/20 11/15/21 History gabapentin 300 mg capsule 300 mg PO DAILY Pain 02/12/20 11/15/21 History gemfibrozil 600 mg tablet 600 mg PO HS Cholesterol 02/12/20 09/05/22 History tamsulosin 0.4 mg capsule 0.4 mg PO HS PROSTATE 02/12/20 11/15/21 History empagliflozin 25 mg-linagliptin 5 1 tab PO DAILY Diabetes 11/03/21 09/05/22 History mg tablet aspirin 81 mg tablet,delayed 81 mg PO DAILY Heart disease 11/08/21 11/15/21 History release bisoprolol fumarate 5 mg tablet 5 mg PO DAILY Heart disease 11/08/21 09/05/22 History ticagrelor 90 mg tablet 90 mg PO BID Heart disease 11/08/21 09/05/22 History New Prescriptions to Start Prescriptions: Allergies Allergy/AdvReac Type Severity Reaction Status Date / Time sulfamethoxazole Allergy Severe S-SKIN Verified 11/15/21 14:24 [From Bactrim] ERUPTIONS (BLISTERS) trimethoprim [From Bactrim] Allergy Severe S-SKIN Verified 11/15/21 14:24 ERUPTIONS (BLISTERS) Exam Data for Last 24 hours Vital signs and Labs for Last 24 Hours: Temp Pulse Resp BP Pulse Ox 98 F 70 16 138/75 97 09/05/22 03:54 09/05/22 04:00 09/05/22 03:54 09/05/22 03:54 09/05/22 03:54 Laboratory Results - last 24 hr 09/04/22 19:14: WBC 10.1, RBC 5.19, Hgb 14.9, Hct 43.0, MCV 82.9, MCH 28.7, MCHC 34.6, RDW 15.5, Plt Count 210, MPV 9.3, Neut % (Auto) 66.6, Lymph % (Auto) 24.5, Payne % (Auto) 4.1, Eos % (Auto) 2.4, Baso % (Auto) 2.4 H, Neut # (Auto) 6.7, Lymph # (Auto) 2.5, Payne # (Auto) 0.4, Eos # (Auto) 0.2, Baso # (Auto) 0.2 09/04/22 19:14: Sodium 133 L, Potassium 3.9, Chloride 98, Carbon Dioxide 25, Anion Gap 13.9, BUN 7 L, Creatinine 0.50 L, Estimated Creat Clear 111, Estimated GFR 168, Est GFR ( Amer) 203, Glucose 374 H, Calcium 8.5, Magnesium 1.6 09/04/22 19:14: Troponin I < 0.01 09/04/22 20:29: POC Glucose 332 H* 09/04/22 23:43: Troponin I < 0.01 09/05/22 05:12: POC Glucose 292 H I & O for Last 24 hours: Intake & Output 09/02/22
--- NOTE | 2022-09-05 08:36 | EXP.PN ---
Subjective *Date: 09/05/22 *Time: 08:36 Interval history: Patient slept well overnight. No chest pains noted. Exam Data for Last 24 hours Vital signs and Labs for Last 24 Hours: Temp Pulse Resp BP Pulse Ox 98 F 70 16 138/75 97 09/05/22 03:54 09/05/22 04:00 09/05/22 03:54 09/05/22 03:54 09/05/22 03:54 Laboratory Results - last 24 hr 09/04/22 19:14: WBC 10.1, RBC 5.19, Hgb 14.9, Hct 43.0, MCV 82.9, MCH 28.7, MCHC 34.6, RDW 15.5, Plt Count 210, MPV 9.3, Neut % (Auto) 66.6, Lymph % (Auto) 24.5, [place] % (Auto) 4.1, Eos % (Auto) 2.4, Baso % (Auto) 2.4 H, Neut # (Auto) 6.7, Lymph # (Auto) 2.5, [place]enden # (Auto) 0.4, Eos # (Auto) 0.2, Baso # (Auto) 0.2 09/04/22 19:14: Sodium 133 L, Potassium 3.9, Chloride 98, Carbon Dioxide 25, Anion Gap 13.9, BUN 7 L, Creatinine 0.50 L, Estimated Creat Clear 111, Estimated GFR 168, Est GFR ( Amer) 203, Glucose 374 H, Calcium 8.5, Magnesium 1.6 09/04/22 19:14: Troponin I < 0.01 09/04/22 20:29: POC Glucose 332 H* 09/04/22 23:43: Troponin I < 0.01 09/05/22 05:12: POC Glucose 292 H I & O for Last 24 hours: Intake & Output 09/02/22 09/03/22 09/04/22 09/05/22 11:59 11:59 11:59 11:59 Intake Total 222 / 222 Output Total 0 / 0 Balance 222 / 222 Weight 229 lb 0.964 oz Microbiology Reports for the Last 24 Hours: Microbiology 09/04/22 00:00 Nasopharyngeal Coronavirus COVID-19 PCR - Final Constitutional Comments: Heart rate regular, no murmurs. No edema noted. Abdomen soft. Alert and oriented x3. Sebaceous cyst in the right axilla has actually improved with much less swelling and minimal redness. Assessment and Plan *Assessment and plan (1) CAD (coronary artery disease): Status: Acute Qualifiers: Coronary Disease-Associated Artery/Lesion type: [place] artery [place] vs. transplanted heart: [place] heart Associated angina: without angina Qualified Code(s): I25.10 - Atherosclerotic heart disease of [place] coronary artery without angina pectoris Category: Medical Code(s): I25.10 - Atherosclerotic heart disease of [place] coronary artery without angina pectoris (2) Unstable angina: Status: Acute Category: Medical Code(s): I20.0 - Unstable angina (3) Sebaceous cyst of axilla: Status: Acute Category: Medical Code(s): L72.3 - Sebaceous cyst Plan 1. Given CAD and his description of the pain we will admit to hospital for serial troponins --these have returned negative. EKG and echocardiogram have been done, cardiology consultation as he follows with [facility] cardiology. 2. Sebaceous cyst-does not appear to be infected but could be superficial cellulitis. Continue hot packs and Rocephin, oral antibiotics on discharge
--- NOTE | 2022-09-05 08:51 | PC.NURSE ---
Hot compress placed, and will continue to replace.
--- NOTE | 2022-09-05 09:13 | EXP.CARD.CON ---
History of Present Illness History of Present Illness Consult date: 09/05/22 Requesting physician: Anders Hernandez Consult reason: chest pain Chief complaint: chest pain Additional Medical History:: Significant medical hx: CAD-Ellis to rca 11/15 HLD Current smoker HLD Grade 1 DD DM COPD 10/2021 cath IMPRESSION Moderate coronary artery disease in the mid LAD and mid small to moderate-sized first obtuse marginal artery Chronically occluded dominant right coronary artery Successful percutaneous revascularization of a chronically occluded right coronary artery 100% occlusion reduced to 0% with 1 drug-eluting stent Preserved ejection fraction with normal LVEDP PLAN 1. Brilinta 90 twice daily plus aspirin 81 mg daily 2. High intensity statin therapy to achieve LDL of 55 3. Avoidance of tobacco products 4. Cardiac rehabilitation 5. Risk factor modification 6. Avoidance of tobacco products Echo 11/15 Conclusion #1.? Mild biatrial enlargement, normal left ventricular size, mild concentric left ventricular hypertrophy, visually estimated ejection fraction 55% with no regional wall motion abnormality, grade 1 diastolic dysfunction seen without tissue Doppler evidence of raise left atrial pressure. #2.? Mildly enlarged right ventricle with normal contractility. #3.? Trace mitral and tricuspid regurgitation. #4.? No significant pericardial effusion noted. #5.? Inferior vena cava normal size with normal inspiratory History of present illness: 62 year old white male with above past medical hx was admitted to hospital with complaint of unstable angina. Mr. Garcia presented to his pcp office yesterday for an abscess and cyst underneath his right axilla. During visit he mentioned having episodes of midsternal chest pain radiating into left arm similar to last year when he received stents. Patient was sent to hospital for admission and cardiology consult. Patient tells me this morning he has had episodes of midsternal chest pressure radiating to left arm and into back 1-2 times a day, often at rest for the last few weeks increasing in frequency and intensity and often associated with increased soa. Serial troponins have been negative. EKG shows SR rate of [address] and t wave abnormalities, no acute ischemic changes noted. [facility] Medical History (Updated 09/05/22 @ 09:30 by Carmen Almodovar APRN) CAD (coronary artery disease) Diabetes mellitus, type 2 Dyspnea HTN (hypertension) Surgical History (Updated 09/04/22 @ 20:21 by Cherri Montes RN) History of knee replacement History of right heart catheterization (RHC) Family History (Updated 09/04/22 @ 20:21 by Cherri Montes RN) Other Family history of acute heart failure Family history of cancer Social History Smoking Status: Current every day smoker tobacco type: cigarettes packs per day: 1 second hand exposure: No alcohol intake: never substance use type: denies use current occupational status: unemployed Travel in the last 8 weeks: [place] the [place] household members: significant other housing: house current occupational exposures/hazards: No Review of Systems Review of Systems Review of systems:: pertinent systems reviewed and negative unless documented below *Cardiovascular Cardiovascular: Reports chest pain, Reports chest pain at rest and Reports dyspnea *Respiratory Respiratory: Reports dyspnea Exam Data for Last 24 hours Vital signs and Labs for Last 24 Hours: Temp Pulse Resp BP Pulse Ox 98.0 F 76 20 159/80 H 99 09/05/22 08:00 09/05/22 08:00 09/05/22 08:00 09/05/22 08:00 09/05/22 08:00 Laboratory Results - last 24 hr 09/04/22 19:14: WBC 10.1, RBC 5.19, Hgb 14.9, Hct 43.0, MCV 82.9, MCH 28.7, MCHC 34.6, RDW 15.5, Plt Count 210, MPV 9.3, Neut % (Auto) 66.6, Lymph % (Auto) 24.5, Simpson % (Auto) 4.1, Eos % (Auto) 2.4, Baso % (Auto) 2.4 H, Neut # (Auto) 6.7, Lymph # (Auto) 2.5, Simpson # (Auto) 0.4,
--- NOTE | 2022-09-05 09:29 | PC.NURSE ---
spoke with Erin LUKE from laboratory chemical assistant about pt okay to have a small breakfast. Called dietary to request toast for pt.
--- NOTE | 2022-09-05 10:36 | ECG_ITS ---
APPROVED REPORT Exam: Resting ECG HR:82 bpm ECG Measurements Heart Rate 82 AXES KS 149 P 25 QRSd 112 QRS 24 QT 343 T -12 QTc 382 Conclusion SINUS RHYTHM MODERATE INTRAVENTRICULAR CONDUCTION DELAY [110+ ms QRS DURATION] NONSPECIFIC ST & T-WAVE ABNORMALITY BORDERLINE ECG UNCONFIRMED REPORT Electronically signed by : Anders Hernandez MD 09/05/2022 20:12:36
[2022-09-05 11:58] LABS: POC Glucose,Bedside 365 (70-110)
--- NOTE | 2022-09-05 13:18 | PC.NURSE ---
Patient off floor to director geophysical laboratory 1:10 PM
[2022-09-05 14:29] LABS: CATHL Activated Clotting Time 295 SEC (74-125)
--- NOTE | 2022-09-05 15:00 | SUR.PHASEII ---
Notified Gisel LUKE that pt is to receive 325 of ASA
--- NOTE | 2022-09-05 17:23 | CA_ITS ---
APPROVED REPORT EXAM: Comprehensive 2D, Doppler, and color-flow Echocardiogram Training Professional: BRADY Seymour, RVS Ht: 5 ft 8 in Wt: 229lbs BSA: 2.17 BP: 130/80 mmHg Indications: COPD, HLD,HTN,CAD, ABN EKG, Aortic sclerosis without stenosis Echo Enhancing Agent Comments: Poor Acoustic windows apically due to lung impedence and body habitus. 2D Dimensions IVSd 1.21 cm LVEF (Visual) 63.90 % PWd 0.99 cm LA Volume 65.90 mL LVDd 4.96 cm LA Volume Index 30.50 mL/m2 (M/F) 16-34 LVDs 3.23 cm Aortic Root 3.12 cm Left Atrium 3.76 cm LVOT 2.02 cm (M/F) 1.5-2.5 M-Mode Dimensions LA Diam 4.12 cm (1.9-4.0) LVDd 4.56 cm (3.5-5.7) Ao Diam 2.97 cm (2.0-3.7) LVDs 3.23 cm (3.5-5.7) EF (Teich) 56.10% EPSs 0.50 cm FS 29.20% EDV (Teich) 95.40 mL TAPSE 2.22 (<1.7) ESV (Teich) 41.90 mL LV Diastology E Decel Time 133.00 (160-240 msec) E/A Ratio 0.99 MED E' 6.20 (< 7 cm/sec) MED A' 8.40 cm/s E'/MED E' Ratio 17.47 (>14) LAT E' 5.50 (<10 cm/sec) LAT A' 8.20 cm/s E/LAT E' Ratio 19.69 (>14) Aortic Valve LVOT Max 112.00 (70-110 cm/s) LVOT VTI 25.43 cm AoV Peak Liam. 178.00 (50-130 cm/s) AO Peak GR. 12.70 mmHg AO Mean GR. 6.30 (<5 mmHg) AO VTI 34.19 (18-25 cm) GRABIEL (VTI) 2.38 (2.5-4.5 cm2) Mitral Valve MV A Velocity 110.00 (40-130 cm/s) E/A Ratio 0.99 MV Decel. Time 133.00 (160-240 ms) MV Mean Gr. 3.00 (<2mmHg) MV PHT 40.00 ms Pulmonary Valve PV Peak Velocity 82.00 (50-150 cm/s) WI End VMAX 127.00 cm/s Tricuspid Valve TR P. Velocity 179.00 cm/s RAP Estimate 10.00 mmHg RVSP 22.90 mmHg Left Ventricle Left atrium is mildly enlarged, left ventricle is normal size mild concentric left ventricular hypertrophy, estimated ejection fraction 55% with no regional wall motion abnormality, diastolic parameters are inconclusive. Right Ventricle Right atrium and right ventricle are mildly enlarged with normal contractility. Aortic Valve Aortic valve is thickened and calcified without aortic stenosis or aortic insufficiency. Mitral Valve Mitral valve has mitral annular calcification which extends in both anterior posterior mitral leaflet, there is no mitral stenosis, there is mild mitral regurgitation. Tricuspid valve grossly normal, Tricuspid Valve There is mild tricuspid regurgitation, tricuspid regurgitation jet is inadequate for calculation of the right ventricular systolic pressure. Pulmonic Valve Pulmonic valve is poorly visualized. Great Vessels Aortic root is normal size. Inferior vena cava is normal size with normal inspiratory collapse. Pericardium No significant pericardial effusion noted. Conclusion 1. Mildly enlarged left atrium, normal left ventricular size mild concentric left ventricular hypertrophy estimated ejection fraction 55% with no regional motion abnormality, diastolic parameters are inconclusive. 2. Thickened and calcified aortic valve without aortic stenosis or aortic insufficiency. 3. Mild mitral and tricuspid regurgitation. 4. No significant pericardial effusion noted. 5. Inferior vena cava normal size with normal inspiratory collapse. Electronically signed by : Hamlet Ernst MD 09/05/2022 19:06:59
[2022-09-05 17:57] LABS: POC Glucose,Bedside 403 (70-110)
[2022-09-05 20:25] LABS: POC Glucose,Bedside 198 (70-110)
--- NOTE | 2022-09-05 20:36 | PC.NURSE ---
Pt is A/Ox4. He went down for a heart cath and tolerated it well. His radial band is off with no problem. He is RA. He has ambulated in the room independent.
[2022-09-06] VITALS: PULSE 70
[2022-09-06 03:38] VITALS: BP 138/80; PULSE 88; RESP 16; TEMP 36.6; O2SAT 98
[2022-09-06 04:00] VITALS: PULSE 70
--- NOTE | 2022-09-06 04:22 | PC.NURSE ---
pt A&OX4. ambulates in room independently. has been up to chair this am. dressing to right radial cath site CDI. pt refused warm compresses to sebacious cyst, no drainage noted. no c/o of pain this shift. CB in reach.
[2022-09-06 05:00] VITALS: BMI 34.7
[2022-09-06 05:40] LABS: POC Glucose,Bedside 236 (70-110)
[2022-09-06 06:50] LABS: Basophils # 0.1 K/mm3 (0-0.2); Basophils % 0.7 % (0.1-2.0); Eosinophils # 0.2 K/mm3 (0.0-0.4); Eosinophils % 1.8 % (0.1-12.0); Hematocrit 42.8 % (42.0-52.0); Hemoglobin 13.4 g/dL (14.1-18.0); Lymphocytes # 2.1 K/mm3 (0.7-4.5); Lymphocytes % 21.9 % (10-50); Mean Corpuscular HGB Conc 31.3 g/dL (31.8-35.4); Mean Corpuscular Hemoglobin 26.6 pg (27.0-31.2); Mean Corpuscular Volume 85.1 fl (80-94); Mean Platelet Volume 9.2 fl (7.4-10.4); Monocytes # 0.4 K/mm3 (0.1-1.0); Monocytes % 4.4 % (1.7-9.3); Neutrophils # 6.9 K/mm3 (1.8-7.8); Neutrophils % 71.3 % (37.0-80.0); Platelet Count 174 K/mm3 (142-424); Red Blood Count 5.03 M/mm3 (4.60-6.20); White Blood Count 9.6 K/mm3 (4.8-10.8)
[2022-09-06 06:52] LABS: Chloride 100 mmol/L (98-107); Sodium 136 mmol/L (136-145)
[2022-09-06 06:53] LABS: Potassium 4.1 mmoL/L (3.5-5.1)
[2022-09-06 06:55] LABS: Blood Urea Nitrogen 9 mg/dl (9-20); Creatinine Clearance Estimated 111 mL/min (50-200); Estimated Glomerular Filt Rate 168 ml/min (>60); GFR (African American) 203 ML/MIN (>60)
[2022-09-06 06:56] LABS: Anion Gap 13.1 mEq/L (5-15); Calcium 8.4 mg/dl (8.4-10.2); Carbon Dioxide 27 mmol/L (22.0-30.0); Glucose 239 mg/dl (74-100)
[2022-09-06 07:56] VITALS: BP 135/75; PULSE 79; RESP 16; TEMP 36.6; O2SAT 98
--- NOTE | 2022-09-06 08:45 | EXP.DC.SUM ---
General Admission date:: 09/04/22 Discharge date: 09/06/22 HPI HPI HPI: 62-year-old white male with history of poorly controlled diabetes, coronary disease with stent placement in the past and a history of heavy nicotine dependence who presented to my office ostensibly for an abscess and cyst underneath his right axilla. However he noted in the visit that he was having chest pains that were in his substernal area and radiating into his left arm. He stated that they were not really exercise associated but they felt just like they did before I got my stent. EKG showed baseline changes but also some new ST/T wave nonspecific changes in the inferior leads and he was admitted to hospital for angina work-up and cardiology consultation. Hospital Course Hospital Course Hospital Course: Patient was admitted to hospital. Given his anginal equivalent and significant risk factors and past history cardiology took him to left heart cath, intra surgeries refer to their notes for details. Briefly he received a stent in his LAD with good resolution of the blockage. He was noted to have another lesion of the right coronary which was not stented. Recommendation was continuing aggressive therapy for blood pressure, lipid issues, DAPT and smoking cessation, in the next couple weeks if he continues to have angina would consider stress testing. The patient did well overnight after the stent, this morning wished to go home. Patient will be discharged home on medicines as noted below, follow-up will be arranged, he was strongly encouraged not to smoke. Exam Data for Last 24 hours Vital signs and Labs for Last 24 Hours: Temp Pulse Resp BP Pulse Ox 97.9 F 79 16 135/75 98 09/06/22 07:56 09/06/22 07:56 09/06/22 07:56 09/06/22 07:56 09/06/22 07:56 Laboratory Results - last 24 hr 09/05/22 11:50: POC Glucose 365 H* 09/05/22 13:58: Activated Clotting Time 295 H* 09/05/22 17:47: POC Glucose 403 H* 09/05/22 20:15: POC Glucose 198 H 09/06/22 05:24: POC Glucose 236 H 09/06/22 06:15: WBC 9.6, RBC 5.03, Hgb 13.4 L, Hct 42.8, MCV 85.1, MCH 26.6 L, MCHC 31.3 L, RDW 15.0, Plt Count 174, MPV 9.2, Neut % (Auto) 71.3, Lymph % (Auto) 21.9, Butts % (Auto) 4.4, Eos % (Auto) 1.8, Baso % (Auto) 0.7, Neut # (Auto) 6.9, Lymph # (Auto) 2.1, Butts # (Auto) 0.4, Eos # (Auto) 0.2, Baso # (Auto) 0.1 09/06/22 06:15: Sodium 136, Potassium 4.1, Chloride 100, Carbon Dioxide 27, Anion Gap 13.1, BUN 9 D, Creatinine 0.50 L, Estimated Creat Clear 111, Estimated GFR 168, Est GFR ( Amer) 203, Glucose 239 H, Calcium 8.4 I & O for Last 24 hours: Intake & Output 09/03/22 09/04/22 09/05/22 09/06/22 11:59 11:59 11:59 11:59 Intake Total 222 / 222 240 / 240 Output Total 0 / 0 0 / 0 Balance 222 / 222 240 / 240 Weight 229 lb 0.964 oz 229 lb 0.964 oz Constitutional Constitutional: no acute distress *Routine HEENT Exam Head: Present normocephalic Eye: Present EOMI and PERRL ENT: Present mucous membranes moist *Routine Neck Exam Neck: Present supple; Absent lymphadenopathy *Routine Respiratory Exam Respiratory: Present CTA bilaterally *Routine Cardiovascular Exam Cardiovascular: Present RRR *Routine Abdominal Exam Abdominal: Present soft and normoactive bowel sounds; Absent tenderness *Routine Extremities Exam Extremities: Absent cyanosis, clubbing or edema *Routine Skin Exam Skin: Present warm; Absent rash Comments: Patient has a variety of tattoos of farming and hinduism motifs on his chest and arms. He does have a resolving sebaceous cyst that is drained quite a bit since admission in the right axilla that has no red streaking. *Routine Neurological Exam Neurological: Present alert and oriented X3 Results Data Completed and Pending Labs on day of discharge: Labs from last 24 hours 09/06/22 09/06/22 09/06/22 06:15 06:15 05:24 WBC 9.6 RBC 5.03 Hgb 13.4 L Hct 42.8 MCV 85.1 MCH 26.6 L MCHC 31.3 L RDW 15.0 Plt Count
--- NOTE | 2022-09-06 09:38 | PC.NURSE ---
Discharged pt and did discharge teaching. Explained to pt extensively about how he is unable to drive him self home for 24 hours since sedation. This time would be 1400. He verbally stated he understood that. He stated he called his brother and he was going to pick him up at the ER entrance and he wanted to wait outside.
--- NOTE | 2022-09-07 13:55 | CARE MANAGER ---
Patient contacted us back. Discussed how patient was doing following discharge from hospital. Patient states he picked up his antibiotic and is aware of follow up appointment. Denies any questions or concerns. MARLY Coffman
== END 2022-09-06 09:40 | disposition home or self-care (01) ==
PROVIDERS: Internal Medicine; Admitting Provider Internal Medicine Adolescent Medicine; PCP Internal Medicine Adolescent Medicine; Visit Provider Internal Medicine Adolescent Medicine
DX: I25.110 Atherosclerotic heart disease of native coronary artery with unstable angina pectoris (principal); I10 Essential (primary) hypertension; E11.9 Type 2 diabetes mellitus without complications; E78.5 Hyperlipidemia, unspecified; L72.3 Sebaceous cyst; Z79.84 Long term (current) use of oral hypoglycemic drugs; Z79.899 Other long term (current) drug therapy; Z20.822 Contact with and (suspected) exposure to COVID-19
CPT/HCPCS: G0378; 36415; 80048; 82962; 83735; 84484; 85025; 85347; 92928; 93005; 93306; 93458; 99152; C1725; C1769; C1874; C9600; C9803; J0696; J1644; Q9967; U0003; U0005

== ENCOUNTER → 2022-09-13 12:37 | Outpatient (CLI) | payer MEDICARE, MEDICAID, SELFPAY ==
[2022-09-13 13:33] LABS: Blood Urea Nitrogen 14 mg/dl (9-20); Estimated Glomerular Filt Rate 136 ml/min (>60); GFR (African American) 165 ML/MIN (>60)
[2022-09-13 14:15] LABS: Hematocrit 45.3 % (42.0-52.0); Hemoglobin 14.8 g/dL (14.1-18.0)
== END ==
PROVIDERS: PCP Internal Medicine Adolescent Medicine; Visit Provider Internal Medicine
DX: I10 Essential (primary) hypertension (principal)
CPT/HCPCS: 36415; 82565; 84520; 85014; 85018

== ENCOUNTER → 2022-09-21 07:01 | Outpatient (CLI) | payer MEDICARE, MEDICAID, SELFPAY ==
--- NOTE | 2022-09-21 07:03 | CA_ITS ---
APPROVED REPORT Exam: Pharmacologic Technologist: Conchis Mars, Ht: 5 ft 8 in Wt: 223 lbs BSA: 2.14 m2 HR: 68 bpm BP: 132/72 mmHg Medical History Medications: Aspirin,,,,, Gabapentin,,,,, Atorvastatin,,,,, Citalopram,,,,, Ticagrelor,,,,, Cefdinir,,,,, BisOPROLOL,,,,, Gemfibrozil,,,,, TAMULOSIN,,,,, GlYXAMBI,,,,, Stress Test Details Test: LEXISCAN Reason for pharmacologic stress test: physical limitation. HR Resting HR: 70 bpm Max Heart Rate (APMHR): 157.646821 bpm Max HR Achieved: 87 bpm Target HR (85% APMHR): 133.560608 bpm % of APMHR: 55.41 Recovery HR: 77 bpm BP Resting BP: 132/72 mmHg Max BP: 133/70 mmHg Recovery BP: 130.0/71.0 mmHg ECG Resting ECG: NSR, PAC, ST-T abns inferiorly & laterally consistent with strain pattern Clinical Exercise duration: 04:02 min Highest Stage Achieved: Stress ECG Conclusion Symptoms: Mild stomach & head discomfort. No CP. Arrhythmias/Ectopy: None. ST-T Changes: Exaggeration of baseline ST-T abns. Conclusion: Non-diagnostic Lexiscan stress. Myoview images reported separately. Electronically signed by : Hamlet Ernst MD 09/22/2022 11:35:50
--- NOTE | 2022-09-21 07:03 | NM_ITS ---
APPROVED REPORT Exam: Nuclear Stress Test Indication: CAD, DM, Tobacco use, Family history Patient Location: Outpatient Stress Tech: Conchis Ly [place] Tech:Jenae Dumont, ARRT, RT (R)(N) Ht: 5 ft 8 in Wt: 226 lbs HR: 70 bpm BP: 132/72 mmHg BSA: 2.15 m2 TID: 0.92 BMI: 34.3 History: CAD, DM, Tobacco use, Family history Procedure: Patient received a 0.4 mg of intravenous Lexiscan, resting heart rate 70 bpm, resting blood pressure 132/72 mmHg, with Lexiscan maximum heart rate achived was 87 bpm which is Less than 85 % of the maximum predicted heart rate and blood pressure was 133/70 mmHg. With Lexiscan, patient denied any complaint of chest pain. Electrocardiogram Resting electrocardiogram showed sinus rhythm nonspecific ST-T changes, with Lexiscan there is less than 1.[address] segment depression noted from the baseline EKG. The EKG portion of the Lexiscan is nondiagnostic. Cardiac Stress and Resting SPECT Images: Cardiac Stress and Resting SPECT images were obtained using technetium 99m Myoview 31.2 mCi stress and 10.06 mCi at rest. Gated SPECT for analysis of segmental wall motion and calculation of the ejection fraction also done. Prone images were also obtained. Cardiac stress and rest SPECT images show a fixed defect in the inferior and apical wall consistent with area of myocardial scarring without brook-infarct ischemia, computer derived ejection fraction is 49% with moderate inferior and apical wall hypokinesis, right ventricle is normal size and contractility. Conclusion: 1. The EKG portion of the Lexiscan is nondiagnostic. 2. Scintigraphic evidence of myocardial scarring involving the inferior and apical wall without significant brook-infarct ischemia, computer derived ejection fraction is 49% with segmental wall motion abnormality described above, right ventricle is normal size and contractility. 3. Abnormal Lexiscan Myoview study. Electronically signed by : Hamlet Ernst MD 09/22/2022 11:39:45
--- NOTE | 2022-09-21 10:52 | HMH.ITSHM ---
Current Home Medications as stated by this patient Annie Garcia or labor union business representative. []TICAGRELOR TAMSULOSIN NITRO GEMFIBROZIL EMPAGLIFLOZIN CITALOPRAM BISOPROLOL ATORVASTATIN ASA
== END ==
PROVIDERS: PCP Internal Medicine Adolescent Medicine; Visit Provider Physician Assistant
DX: E11.9 Type 2 diabetes mellitus without complications (principal); E78.2 Mixed hyperlipidemia; I10 Essential (primary) hypertension; I25.10 Atherosclerotic heart disease of native coronary artery without angina pectoris; R94.31 Abnormal electrocardiogram [ECG] [EKG]
CPT/HCPCS: 78452; 93017; A9502; J2785

== ENCOUNTER → 2022-11-07 07:26 | Outpatient (CLI) | payer MEDICARE, MEDICAID, SELFPAY ==
--- NOTE | 2022-11-07 07:29 | US_ITS ---
FINAL REPORT CLINICAL HISTORY: H/O NICOTINE DEPENDENCE, aaa screening FINDINGS: Sonographic images were obtained of the abdominal aorta. The abdominal aorta measures up to 1.9 cm in greatest dimensions. The common iliac arteries are within normal limits. IMPRESSION: No evidence of aneurysm. Reviewed, Interpreted and Dictated by Erlin Hansen III, MD Transcribed by Manfred Logan Authenticated and [facility]
--- NOTE | 2022-11-07 07:30 | CT_ITS ---
FINAL REPORT CLINICAL HISTORY: H/O NICOTINE DEPENDENCE current smoker 1.5ppd x48 years COMPARISON: April 2020 FINDINGS: Low-Dose Chest CT CTDI vol (mGy): 2.90 DLP (mGy-cm): 98.21 Axial images were obtained from the lung apex to the mid abdomen by computed tomography. Low-dose protocol was utilized. FINDINGS: CHEST: There is no axillary adenopathy. There is no hilar or mediastinal adenopathy. The heart is proper size. There is no pericardial or pleural effusion. Limited images of the upper abdomen demonstrate bilateral adrenal gland enlargement, stable, favoring adenomas. The spleen is incompletely imaged but likely enlarged but stable. Lung window images demonstrate a stable 3 mm nodule in the left apex on image 13. There are a cluster of small nodules in the left upper lobe with the largest measuring up to 3 mm, stable. There are several other less than 5 mm bilateral noncalcified nodules which are stable. There is no new mass or pulmonary nodule. IMPRESSION: Lung RADS category 1. Recommend 12 month follow-up low-dose chest CT. Reviewed, Interpreted and Dictated by Erlin Hansen III, MD Transcribed by Manfred Logan Authenticated and [facility]
== END ==
PROVIDERS: PCP Internal Medicine Adolescent Medicine; Visit Provider Internal Medicine Adolescent Medicine
DX: Z87.891 Personal history of nicotine dependence (principal); Z12.2 Encounter for screening for malignant neoplasm of respiratory organs; I71.40 Abdominal aortic aneurysm, without rupture, unspecified
CPT/HCPCS: 71271; 76770

== ENCOUNTER → 2022-11-13 13:27 | Outpatient (CLI) | payer MEDICARE, MEDICAID, SELFPAY ==
[2022-11-13 14:36] LABS: Basophils # 0.1 K/mm3 (0-0.2); Eosinophils # 0.2 K/mm3 (0.0-0.4); Eosinophils % 1.7 % (0.1-12.0); Hematocrit 42.3 % (42.0-52.0); Hemoglobin 14.6 g/dL (14.1-18.0); Lymphocytes # 2.2 K/mm3 (0.7-4.5); Lymphocytes % 20.8 % (10-50); Mean Corpuscular HGB Conc 34.4 g/dL (31.8-35.4); Mean Corpuscular Hemoglobin 27.4 pg (27.0-31.2); Mean Corpuscular Volume 79.6 fl (80-94); Mean Platelet Volume 9.9 fl (7.4-10.4); Monocytes # 0.5 K/mm3 (0.1-1.0); Monocytes % 4.5 % (1.7-9.3); Neutrophils # 7.6 K/mm3 (1.8-7.8); Platelet Count 279 K/mm3 (142-424); Red Blood Count 5.31 M/mm3 (4.60-6.20); White Blood Count 10.5 K/mm3 (4.8-10.8)
[2022-11-13 15:21] LABS: Anion Gap 12.4 mEq/L (5-15); Blood Urea Nitrogen 11 mg/dl (9-20); Calcium 9.4 mg/dl (8.4-10.2); Carbon Dioxide 29 mmol/L (22.0-30.0); Chloride 99 mmol/L (98-107); Estimated Glomerular Filt Rate 114 ml/min (>60); GFR (African American) 138 ML/MIN (>60); Glucose 267 mg/dl (74-100); Potassium 4.4 mmoL/L (3.5-5.1); Sodium 136 mmol/L (136-145)
== END ==
PROVIDERS: PCP Internal Medicine Adolescent Medicine; Visit Provider Nurse Practitioner Family
DX: E13.69 Other specified diabetes mellitus with other specified complication (principal); E78.2 Mixed hyperlipidemia; I10 Essential (primary) hypertension; I20.8 Other forms of angina pectoris; R06.09 Other forms of dyspnea; R20.0 Anesthesia of skin; R94.31 Abnormal electrocardiogram [ECG] [EKG]; R94.39 Abnormal result of other cardiovascular function study; I63.9 Cerebral infarction, unspecified; Z79.4 Long term (current) use of insulin
CPT/HCPCS: 36415; 80048; 85025

== ENCOUNTER 2022-11-14 08:26 | Day surgery (SDC) | payer MEDICARE, MEDICAID, SELFPAY ==
[2022-11-14] VITALS (18 sets, daily range): BP systolic 114–174; BP diastolic 67–94; PULSE 78–87; RESP 17–19; O2SAT 94–97; BMI 33.9
--- NOTE | 2022-11-14 07:37 | IR_ITS ---
APPROVED REPORT Patient Location: Outpatient Air Moving Technician: CHASE Patino RT (R) PROCEDURES Selective coronary angiogram Drug-eluting stent deployment in the first obtuse marginal artery off the circumflex artery Intravascular ultrasound of the right coronary Drug-eluting stent deployment to the proximal and mid dominant right coronary INDICATION Coronary artery disease, Angina pectoris, Abnormal Myoview, Angiographically indeterminate coronary artery disease with a previous stent in the right coronary artery and now with in-stent restenosis Informed consent was obtained prior to the procedure. COMPLICATIONS None Estimated Blood Loss: Less than 10 mls TECHNIQUE One percent lidocaine used to anesthetize the right anterior aspect of the wrist. The right radial artery was accessed via the Seldinger technique. A 6 Romansh sheath was placed in the right radial artery. 2.5 mg of verapamil, 800 mcg of nitroglycerin, 1mg Lidocaine and 5000 U Heparin were given through the arterial sheath. The papa catheter was also used to perform selective coronary angiogram. At the end the diagnostic angiogram therapeutic heparin was administered giving a therapeutic ACT and the guide catheter was placed in the left main artery followed by a Choice PT extra-support wire down the circumflex artery and first obtuse marginal artery. A 2.5 x 34 mm resolute [place] stent was deployed at 14 noemy reducing the severe stenosis to 0%. OSCAR-3 flow was present before and after the procedure. At the end the therapeutic intervention the catheter was removed and the guide catheter was placed in the right coronary artery followed by a Choice PT extra-support wire down the right coronary artery. Patient had a previous stent and there was angiographic indeterminant stenosis in the mid right coronary artery in the setting of an abnormal stress test with inferior ischemia. Because of this an intravascular ultrasound probe was advanced and the MLA at the stent junction was less than 3 mm???. At this point the previous stent appeared to be slightly undersized therefore a 4 mm x 38 mm resolute [place] stent was deployed at 18 noemy reducing the stenosis. The intravascular ultrasound probe was readvanced and demonstrated an area at the stent overlap was still under deployed. A 4.5 x 12 mm noncompliant balloon was then advanced and dilated at 18 noemy and then 20 noemy throughout the 4 mm stent to post dilate. OSCAR-3 flow was present before and after the procedure. There are excellent angiograph results. At the end of procedure the apparatus was removed the sheath was removed and hemostasis was achieved using TR banding patient was transferred to the postop putting in stable condition ANGIOGRAPHIC RESULTS The left main artery Normal The left anterior descending artery Has a stent in the proximal segment which is widely patent free of in-stent restenosis with excellent proximal distal transitioning The circumflex artery Is a nondominant vessel and proximally normal. A large bifurcating first obtuse marginal artery has 70 and 80% tandem stenoses. The right coronary artery Is a dominant vessel and has angiographically indeterminate stenosis in the proximal segment with a mid vessel 40 to 50% stenosis immediately proximal to the right coronary artery stent. The MANCIA ventriculogram reveals Not performed The left ventricular end-diastolic pressure Not measured IMPRESSION Severe stenosis in the first obtuse marginal artery off the circumflex artery with successful stenting reducing the tandem stenosis to 0% Severe stenosis at the junction of the previously placed stent and a large dominant right coronary artery with successful stenting reduc
--- NOTE | 2022-11-14 14:22 | HMH.PHACL ---
[facility] Business Continuity Management Director Discharge Med Tower Hand: Annie Garcia has received discharge medication counseling on the following medications: MD STARTING PATIENT ON RAMIPRIL 5 MG DAILY. PATIENT IS CURRENTLY TAKING ATORVASTATIN 80 MG HS, ASPIRIN 81 MG DAILY, BRILINTA 90 MG BID, AND BISOPROL 5 MG DAILY.
[2022-11-14 15:55] LABS: CATHL Activated Clotting Time 243 SEC (74-125)
== END 2022-11-14 14:24 | disposition home or self-care (01) ==
PROVIDERS: PCP Internal Medicine Adolescent Medicine; Visit Provider Internal Medicine
DX: E78.2 Mixed hyperlipidemia; I10 Essential (primary) hypertension; I25.118 Atherosclerotic heart disease of native coronary artery with other forms of angina pectoris; R06.09 Other forms of dyspnea; R20.0 Anesthesia of skin; R94.31 Abnormal electrocardiogram [ECG] [EKG]; R94.39 Abnormal result of other cardiovascular function study; T82.855A Stenosis of coronary artery stent, initial encounter; E11.9 Type 2 diabetes mellitus without complications; Z79.4 Long term (current) use of insulin; F17.210 Nicotine dependence, cigarettes, uncomplicated; Z79.899 Other long term (current) drug therapy; Y83.1 Surgical operation with implant of artificial internal device as the cause of abnormal reaction of the patient, or of later complication, without mention of misadventure at the time of the procedure
CPT/HCPCS: 85347; 92928; 92978; 99152; 99153; C1725; C1760; C1769; C1876; C9600; J1644; Q9967

== ENCOUNTER → 2022-11-23 10:00 | Outpatient (CLI) | payer MEDICARE, MEDICAID, SELFPAY ==
[2022-11-23 11:04] LABS: Basophils # 0.1 K/mm3 (0-0.2); Eosinophils # 0.3 K/mm3 (0.0-0.4); Eosinophils % 2.5 % (0.1-12.0); Hematocrit 42.2 % (42.0-52.0); Lymphocytes # 2.3 K/mm3 (0.7-4.5); Lymphocytes % 21.4 % (10-50); Mean Corpuscular HGB Conc 33.1 g/dL (31.8-35.4); Mean Corpuscular Hemoglobin 27.4 pg (27.0-31.2); Mean Corpuscular Volume 82.8 fl (80-94); Mean Platelet Volume 9.4 fl (7.4-10.4); Monocytes # 0.5 K/mm3 (0.1-1.0); Monocytes % 4.9 % (1.7-9.3); Neutrophils # 7.6 K/mm3 (1.8-7.8); Neutrophils % 70.1 % (37.0-80.0); Platelet Count 243 K/mm3 (142-424); Red Blood Count 5.09 M/mm3 (4.60-6.20); Red Cell Distribution Width 16.2 % (11.5-17.5); White Blood Count 10.8 K/mm3 (4.8-10.8)
[2022-11-23 11:34] LABS: Chloride 102 mmol/L (98-107); Potassium 4.4 mmoL/L (3.5-5.1); Sodium 137 mmol/L (136-145)
[2022-11-23 11:37] LABS: Anion Gap 13.4 mEq/L (5-15); Blood Urea Nitrogen 10 mg/dl (9-20); Calcium 8.8 mg/dl (8.4-10.2); Carbon Dioxide 26 mmol/L (22.0-30.0); Estimated Glomerular Filt Rate 114 ml/min (>60); GFR (African American) 138 ML/MIN (>60); Glucose 190 mg/dl (74-100)
== END ==
PROVIDERS: PCP Internal Medicine Adolescent Medicine; Visit Provider Internal Medicine
DX: I25.10 Atherosclerotic heart disease of native coronary artery without angina pectoris (principal); Z48.89 Encounter for other specified surgical aftercare
CPT/HCPCS: 36415; 80048; 85025

== ENCOUNTER → 2023-06-04 13:11 | Outpatient (CLI) | payer MEDICARE, MEDICAID, SELFPAY ==
[2023-06-04 13:32] LABS: Basophils # 0.1 K/mm3 (0-0.2); Basophils % 0.7 % (0.1-2.0); Eosinophils # 0.2 K/mm3 (0.0-0.4); Eosinophils % 1.5 % (0.1-12.0); Hematocrit 43.6 % (42.0-52.0); Hemoglobin 14.1 g/dL (14.1-18.0); Lymphocytes # 1.9 K/mm3 (0.7-4.5); Lymphocytes % 17.2 % (10-50); Mean Corpuscular HGB Conc 32.4 g/dL (31.8-35.4); Mean Corpuscular Hemoglobin 26.6 pg (27.0-31.2); Mean Platelet Volume 10.3 fl (7.4-10.4); Monocytes # 0.5 K/mm3 (0.1-1.0); Monocytes % 4.8 % (1.7-9.3); Neutrophils # 8.2 K/mm3 (1.8-7.8); Neutrophils % 75.7 % (37.0-80.0); Platelet Count 205 K/mm3 (142-424); Red Blood Count 5.31 M/mm3 (4.60-6.20); Red Cell Distribution Width 15.9 % (11.5-17.5); White Blood Count 10.8 K/mm3 (4.8-10.8)
[2023-06-04 15:01] LABS: Alanine Aminotransferase 29 U/L (12-78); Albumin/Globulin Ratio 1.6 (1.1-1.8); Alkaline Phosphatase 170 U/L (38-126); Aspartate Amino Transferase 27 U/L (17-59); Bilirubin,Total 0.8 mg/dl (0.2-1.3); Blood Urea Nitrogen 11 mg/dl (9-20); Calcium 9.2 mg/dl (8.4-10.2); Carbon Dioxide 26 mmol/L (22.0-30.0); Chol/HDL Ratio 3.9 (1-3.5); Cholesterol 110 mg/dl (140-200); Estimated Glomerular Filt Rate 114 ml/min (>60); GFR (African American) 137 ML/MIN (>60); Globulin 2.5 g/dL (1.3-3.2); HDL Cholesterol 28 mg/dl (40-60); Potassium 4.8 mmoL/L (3.5-5.1); Sodium 134 mmol/L (136-145); Total Protein,Serum 6.5 g/dl (6.3-8.2); Triglycerides 399 mg/dl (30-150); VLDL Cholesterol 80 mg/dL (0-40)
[2023-06-04 15:12] LABS: Direct LDL Cholesterol 39.36 mg/dL (100-129)
[2023-06-04 15:40] LABS: Troponin I < 0.01 ng/ml (0.00-0.034)
[2023-06-04 15:45] LABS: Glucose 457 mg/dl (74-100)
[2023-06-04 16:51] LABS: Anion Gap 13.8 mEq/L (5-15); Chloride 99 mmol/L (98-107)
[2023-06-04 22:55] LABS: Hemoglobin A1C 10.3 % (4.0-6.0)
== END ==
LOC: LAB 13:12
PROVIDERS: PCP Internal Medicine Adolescent Medicine; Visit Provider Internal Medicine Adolescent Medicine
DX: I20.8 Other forms of angina pectoris (principal); E78.5 Hyperlipidemia, unspecified; E11.9 Type 2 diabetes mellitus without complications; Z79.4 Long term (current) use of insulin; R79.89 Other specified abnormal findings of blood chemistry
CPT/HCPCS: 36415; 80053; 80061; 83036; 84484; 85025

== ENCOUNTER 2023-12-07 15:42 | Outpatient (CLI) | payer MEDICARE, MEDICAID, SELFPAY ==
[2023-12-07 16:48] LABS: Chloride 97 mmol/L (98-107); Sodium 133 mmol/L (136-145)
[2023-12-07 16:49] LABS: Potassium 4.5 mmoL/L (3.5-5.1)
[2023-12-07 16:52] LABS: Anion Gap 12.5 mEq/L (5-15); Blood Urea Nitrogen 13 mg/dl (9-20); Calcium 8.7 mg/dl (8.4-10.2); Carbon Dioxide 28 mmol/L (22.0-30.0); Estimated Glomerular Filt Rate 136 ml/min (>60); GFR (African American) 164 ML/MIN (>60)
[2023-12-07 17:33] LABS: Glucose 435 mg/dl (74-100)
== END 2023-12-07 23:59 ==
LOC: LAB 15:44
PROVIDERS: PCP Internal Medicine Adolescent Medicine; Visit Provider Podiatrist
DX: E11.40 Type 2 diabetes mellitus with diabetic neuropathy, unspecified (principal)
CPT/HCPCS: 36415; 80048; 83036

== ENCOUNTER 2024-06-26 14:03 | Outpatient (CLI) | payer MEDICARE, MEDICAID, SELFPAY ==
--- NOTE | 2024-06-26 14:04 | CA_ITS ---
APPROVED REPORT EXAM: Comprehensive 2D, Doppler, and color-flow Echocardiogram Etl Analyst: BRADY Seymour, RVS Ht: 5 ft 8 in Wt: 227lbs BSA: 2.16 BP: 107/45 mmHg Indications: COPD, Smoker, Dyspnea, CAD, HTN, DM, HLD 2D Dimensions IVSd 1.08 cm M: 0.6-1.2 LVEF (Visual) 69.40 % PWd 1.02 cm M: 0.6 - 1.2 LA Volume 51.40 mL LVDd 5.10 cm M: 4.2 - 5.9 LA Volume Index 23.636179 mL/m2 (M/F) 16-34 LVDs 3.10 cm M: 2.5 - 4.0 M-Mode Dimensions RVDd 1.64 cm (0.9-2.6) LA Diam 3.98 cm (1.9-4.0) LVDd 5.46 cm (3.5-5.7) LVDs 3.89 cm (3.5-5.7) IVSd 1.28 cm (0.6-1.1) PWd 1.32 cm (0.6-1.1) EF (Teich) 54.80% EPSs 0.54 cm FS 28.80% EDV (Teich) 145.00 mL TAPSE 2.38 (<1.7) ESV (Teich) 65.50 mL LV Diastology E Decel Time 260 (160-240 msec) E/A Ratio 0.92 MED A' 8.80 cm/s LAT A' 9.40 cm/s Aortic Valve GRABIEL Index 0.86 cm2/m2 AoV Peak Liam. 202.0 (50-130 cm/s) AO Peak GR. 16.30 mmHg AO Mean GR. 8.10 (<5 mmHg) AO VTI 35.6 (18-25 cm) GRABIEL (VTI) 1.90 (2.5-4.5 cm2) Mitral Valve MV A Velocity 87.0 (40-130 cm/s) E/A Ratio 0.92 Pulmonary Valve PV Peak Velocity 104.0 (50-150 cm/s) [place] End VMAX 219.0 cm/s Tricuspid Valve TR P. Velocity 241.00 cm/s RAP Estimate 10.00 mmHg RVSP 33.20 mmHg Left Ventricle The left ventricle is normal size. The left ventricular systolic function is normal. The left ventricular ejection fraction is within the normal range. There is increased LV wall thickness. There is normal LV segmental wall motion. The left ventricular diastolic function is normal. LVEF is 60%. Right Ventricle The right ventricle is normal size. The right ventricular systolic function is normal. Atria The left atrium size is normal. The right atrium size is normal. There is no Doppler evidence of interatrial shunt. Aortic Valve The aortic valve is mildly thickened. Mild aortic stenosis. Peak velocity 2.0 m/s. Mean AV gradient 8 mmHg. Max AV gradient 18 mmHg. GRABIEL by continuity equation is 2.0 cm???. Trace aortic regurgitation. Mitral Valve The mitral valve is normal in structure. No evidence of mitral valve stenosis. Trace mitral regurgitation. Tricuspid Valve The tricuspid valve leaflets are thin and pliable. Trace tricuspid regurgitation. RVSP is 20-25 mmHg. Pulmonic Valve The pulmonary valve is normal in structure. Trace pulmonic regurgitation. Great Vessels The aortic root is normal in size. The ascending aorta is not well-visualized. IVC is normal in size and collapses >50% with inspiration. Pericardium There is no pericardial effusion. Other Information Study Quality: Fair Conclusion Normal biventricular systolic function. Mild (transaortic peak velocity 2.0 m/s. Mean AV gradient 8 mmHg. Max AV gradient 18 mmHg. GRABIEL by continuity equation is 2.0 cm???.) Electronically signed by : Kelin Messer MD 06/29/2024 22:44:06
== END 2024-06-26 23:59 | disposition home or self-care (01) ==
LOC: RT 14:04
PROVIDERS: PCP Internal Medicine Adolescent Medicine; Visit Provider Nurse Practitioner
DX: R06.09 Other forms of dyspnea (principal); I34.0 Nonrheumatic mitral (valve) insufficiency; I07.1 Rheumatic tricuspid insufficiency
CPT/HCPCS: 93306

== ENCOUNTER 2024-06-30 06:36 | Outpatient (CLI) | payer MEDICARE, MEDICAID, SELFPAY ==
--- NOTE | 2024-06-30 | CA_ITS ---
APPROVED REPORT Exam: Pharmacologic Technologist: Hemalatha Dinh, Ht: 5 ft 8 in Wt: 231 lbs BSA: 2.17 m2 HR: 68 bpm BP: 109/56 mmHg Medical History Medical History: HTN, Diabetes, Smoking Medications: Atorvastatin,,,,, Albuterol,,,,, CloPIdogrel,,,,, BisOPROLOL Fumarate,,,,, Nitroglycerin,,,,, Pregabalin,,,,, Gemfibrizil,,,,, Isosorbide Monoitrate ER,,,,, INSULIN Degludec,,,,, SolIqua 100/33,,,,, NovOLIN 70/30,,,,, Cardiac Risk Factors: HTN, Diabetes , FHX of CAD, Smoking Stress Test Details Test: LEXISCAN HR Resting HR: 66 bpm Max Heart Rate (APMHR): 155 bpm Max HR Achieved: 85 bpm Target HR (85% APMHR): 132 bpm % of APMHR: 55 Recovery HR: 75 bpm BP Resting BP: 109/56 mmHg Max BP: 121/60 mmHg Recovery BP: 121.0/60.0 mmHg ECG Resting ECG: Normal sinus rhythm, T wave changes at baseline Stress ECG: No significant ST changes Arrhythmia: None Clinical Exercise duration: 04:13 min Highest Stage Achieved: Exercise capacity: 1.0 METs Stress ECG Conclusion ECG at baseline demonstrates normal sinus rhythm, T wave changes at baseline Ectopy: None ST changes: None Conclusion: Unremarkable ECG portion of Lexiscan stress test. Myoview images reported separately. Test Summary REST 06:11 . . 66 . 109/ 56 . . Stage 1 01:00 . . 80 . . . . Stage 2 01:00 . . 83 . . . . Stage 3 01:00 . . 80 . 120/ 63 . . Stage 4 01:00 . . 77 . 112/ 69 . . Stage 4 01:13 . . 78 . 112/ 69 . Stop exercise at 04:13 RECOVERY 01:00 . . 79 . 111/ 59 . . RECOVERY 02:00 . . 75 . 112/ 67 . . RECOVERY 02:35 . . 80 . 121/ 60 . . Electronically signed by : Kelin Messer MD 07/01/2024 00:48:53
--- NOTE | 2024-06-30 06:39 | NM_ITS ---
APPROVED REPORT Exam: Nuclear Stress Test Indication: Chest pain, SOB, DM, Tobacco use, Family history, CAD Patient Location: Outpatient Stress Tech: Hemalatha Dinh [place] Tech:Jenae Dumont, ARRT, RT (R)(N) Ht: 5 ft 8 in Wt: 227 lbs HR: 66 bpm BP: 109/56 mmHg BSA: 2.16 m2 Rhythm: NSR TID: 1.12 BMI: 34.5 History: Chest pain, SOB, DM, Tobacco use, Family history, CAD Procedure: Patient received 0.4 mg of intravenous Lexiscan, resting heart rate 66 bpm, resting blood pressure 109/56 mmHg, with Lexiscan maximum heart rate achieved was 85 bpm which is % of the maximum predicted heart rate and blood pressure was 121/60 mmHg. With Lexiscan, patient denied any complaint of chest pain. Cardiac Stress and Resting SPECT Images: Cardiac Stress and Resting SPECT images were obtained using technetium 99m Myoview 32.0 mCi stress and 10.08 mCi at rest. The resting and stress imaging in supine and prone positions demonstrate a large sized, severe, predominantly fixed perfusion defect in the inferior and inferoseptal LV wall. There is a region of minimal reversibility towards the septal region. Gated imaging demonstrates low-normal global LV systolic function. There is severe hypokinesis of the inferior LV wall. There is mild hypokinesis of the septal LV wall. LVEF is calculated at 51%. Conclusion: Large sized, severe, predominantly fixed perfusion defect in the inferior and inferoseptal LV wall. There is a region of minimal reversibility towards the septal region. Gated imaging demonstrates low-normal global LV systolic function. There is severe hypokinesis of the inferior LV wall. There is mild hypokinesis of the septal LV wall. LVEF is calculated at 51%. Electronically signed by : Kelin Messer MD 07/01/2024 00:51:45
[2024-06-30] MEDS: ISOTOPE MYOVIEW (PER STUDY) 1 DOSE IV (08:48)
[2024-06-30] MEDS: SODIUM CHLORIDE 0.9% 10ML SYR (RAD ONLY) 10 ML IV ×2 (08:48)
[2024-06-30] MEDS: REGADENOSON 0.4MG/5ML SYRINGE 0.4 MG IV (08:48)
== END 2024-06-30 23:59 | disposition home or self-care (01) ==
LOC: RAD 06:37
PROVIDERS: PCP Internal Medicine Adolescent Medicine; Visit Provider Nurse Practitioner
DX: R06.09 Other forms of dyspnea (principal); R94.31 Abnormal electrocardiogram [ECG] [EKG]; I25.10 Atherosclerotic heart disease of native coronary artery without angina pectoris; F17.210 Nicotine dependence, cigarettes, uncomplicated
CPT/HCPCS: 78452; 93017; 93018; A9502; J2785

== ENCOUNTER 2024-07-29 08:42 | Day surgery (SDC) | payer MEDICARE, MEDICAID, SELFPAY ==
[2024-07-29] VITALS (12 sets, daily range): BP systolic 137–160; BP diastolic 64–84; PULSE 65–80; RESP 18–20; O2SAT 93–97; BMI 34.7
--- NOTE | 2024-07-29 07:04 | IR_ITS ---
APPROVED REPORT Patient Location: Outpatient Ui Engineer: CHASE Patel RT (R) PROCEDURES Left heart catheterization Left ventriculogram Selective coronary angiogram Drug-eluting stent deployment in the circumflex artery extending into the first obtuse marginal artery Drug-eluting stent deployment to the distal dominant right coronary INDICATION Coronary artery disease, Worsening angina pectoris Informed consent was obtained prior to the procedure. COMPLICATIONS NONE Estimated Blood Loss: LESS THAN 10 ML TECHNIQUE One percent lidocaine used to anesthetize the right anterior aspect of the wrist. The right radial artery was accessed via the Seldinger technique. A 6 Nepalese sheath was placed in the right radial artery. 2.5 mg of Verapamil, 800 mcg of nitroglycerin, 1mg Lidocaine and 5000 U Heparin were given through the arterial sheath. The papa catheter was also used to perform left heart catheterization, left ventriculogram and selective coronary angiogram. At the end the diagnostic angiogram therapeutic heparin is administered giving a therapeutic ACT and the guide catheter was placed in left main artery followed by Choice PT extra-support wire placed in the first obtuse marginal artery. A 3 mm x 15 mm Stefan frontier stent was placed in the circumflex artery extending into the first obtuse marginal artery and deployed at 14 noemy. A 3 mm x 8 mm balloon was deployed in the midportion of the stent and proximal portion both deployed at 20 noemy to post dilate. OSCAR-3 flow was present before and after the procedure. At the end the procedure the apparatus was removed the guide catheter was placed in the right coronary artery followed by the same wire being placed distally. A 3.5 x 15 mm [place] frontier stent was deployed at 20 noemy in the distal segment reducing the stenosis to 0% OSCAR-3 flow was present before and after the procedure. At the end the procedure the apparatus was removed the sheath was removed and hemostasis was achieved using TR banding patient was transferred to the postop putting in stable condition ANGIOGRAPHIC RESULTS The left main artery Has an ostial 20% eccentric stenosis The left anterior descending artery Has proximal 10% stenosis followed by stent which extends from the proximal to midportion which is widely patent with minimal in-stent restenosis and excellent proximal distal transitioning. All septal perforators and diagonal arteries are widely patent The circumflex artery Is nondominant and has a 70% concentric stenosis in the proximal first obtuse marginal artery just proximal to a widely patent stent The right coronary artery Is a dominant vessel and has stents in the proximal mid and distal segment. Distally at the edge of the stent there is an eccentric 70% stenosis The MANCIA ventriculogram reveals Normal 65% The left ventricular end-diastolic pressure 20 to 25 mmHg IMPRESSION Widely patent LAD as described above with widely patent septal perforators and diagonal arteries Severe disease in the proximal obtuse marginal artery with successful stenting of the circumflex artery extending in the first obtuse marginal artery severe disease reduced to 0% with 1 drug-eluting stent Severe in-stent stenosis in the distal dominant right coronary artery with successful stenting reducing the lesion to 0% with 1 drug-eluting stent Normal ejection fraction Moderately elevated LVEDP PLAN 1. Dual antiplatelet therapy 2. Recommend sleep study 3. Cardiac rehabilitation 4. Avoidance of tobacco products 5. Risk factor modification 6. LDL less than 55 achieved high intensity statin Electronically signed by : Mio Samuel MD 07/29/2024 11:59:42
[2024-07-29 09:17] LABS: Basophils # 0.1 K/mm3 (0-0.2); Basophils % 1.3 % (0.1-2.0); Eosinophils # 0.2 K/mm3 (0.0-0.4); Eosinophils % 1.7 % (0.1-12.0); Hematocrit 47.5 % (42.0-52.0); Hemoglobin 15.5 g/dL (14.1-18.0); Lymphocytes # 2.1 K/mm3 (0.7-4.5); Lymphocytes % 20.7 % (10-50); Mean Corpuscular HGB Conc 32.6 g/dL (31.8-35.4); Mean Corpuscular Hemoglobin 27.8 pg (27.0-31.2); Mean Corpuscular Volume 85.4 fl (80-94); Mean Platelet Volume 9.8 fl (7.4-10.4); Monocytes # 0.5 K/mm3 (0.1-1.0); Monocytes % 5.2 % (1.7-9.3); Neutrophils # 7.2 K/mm3 (1.8-7.8); Neutrophils % 71.1 % (37.0-80.0); Platelet Count 203 K/mm3 (142-424); Red Blood Count 5.56 M/mm3 (4.60-6.20); Red Cell Distribution Width 16.6 % (11.5-17.5); White Blood Count 10.1 K/mm3 (4.8-10.8)
[2024-07-29 09:30] LABS: Anion Gap 9.3 mEq/L (5-15); Blood Urea Nitrogen 11 mg/dl (9-20); Calcium 9.1 mg/dl (8.4-10.2); Carbon Dioxide 29 mmol/L (22.0-30.0); Chloride 101 mmol/L (98-107); Creatinine Clearance Estimated 71 mL/min (50-200); Estimated Glomerular Filt Rate 135 ml/min (>60); GFR (African American) 164 ML/MIN (>60); Glucose 267 mg/dl (74-100); Potassium 4.3 mmoL/L (3.5-5.1); Sodium 135 mmol/L (136-145)
[2024-07-29] MEDS: VERAPAMIL 2.5MG/ML 2ML VIAL 2.5 MG IV (11:08)
[2024-07-29] MEDS: LIDOCAINE 1% 10ML MDV 20 ML IJ (11:08)
[2024-07-29] MEDS: NITROGLYCERIN 800MCG/8ML SYR (CATH LAB) 800 MCG IA (11:08)
[2024-07-29] MEDS: diphenhydrAMINE 50MG/ML VIAL 50 MG IV (11:08)
[2024-07-29] MEDS: HEPARIN 1,000 UNITS/500ML NS (CATH LAB) 3000 UNIT IV (11:09)
[2024-07-29] MEDS: HEPARIN 1,000 UNITS/ML 10ML VIAL (CATH LAB) 10000 UNIT IV (11:09)
[2024-07-29] MEDS: 0.9 % SODIUM CHLORIDE 500 ML 25 ML IV (11:09)
[2024-07-29] MEDS: MIDAZOLAM HCL 1MG/1ML 5ML VIAL 1 MG IV (11:10)
[2024-07-29] MEDS: FENTANYL 100MCG/2ML VIAL 50 MCG IV (11:10)
[2024-07-29] MEDS: ASPIRIN 325MG TABLET 325 MG PO (11:50)
[2024-07-29] MEDS: CLOPIDOGREL 75MG TAB 75 MG PO (11:52)
[2024-07-29] MEDS: IOPAMIDOL-370 (76%);100ML BOTTLE 80 ML IV (12:22)
[2024-07-29 12:24] LABS: CATHL Activated Clotting Time 292 SEC (74-125)
== END 2024-07-29 15:00 | disposition home or self-care (01) ==
LOC: CATHLAB 08:44
PROVIDERS: PCP Internal Medicine Adolescent Medicine; Visit Provider Internal Medicine
DX: R93.1 Abnormal findings on diagnostic imaging of heart and coronary circulation (principal); I10 Essential (primary) hypertension; I25.118 Atherosclerotic heart disease of native coronary artery with other forms of angina pectoris; R94.31 Abnormal electrocardiogram [ECG] [EKG]; E78.2 Mixed hyperlipidemia; I34.0 Nonrheumatic mitral (valve) insufficiency; I07.1 Rheumatic tricuspid insufficiency; F17.210 Nicotine dependence, cigarettes, uncomplicated; E11.9 Type 2 diabetes mellitus without complications; Z79.4 Long term (current) use of insulin; T82.855A Stenosis of coronary artery stent, initial encounter
CPT/HCPCS: 80048; 85025; 85347; 92928; 93458; 99152; 99153; C1725; C1769; C1874; C9600; J1200; J1644; J2250; J3010; Q9967

== ENCOUNTER 2024-07-31 10:15 | Outpatient (CLI) | payer MEDICARE, MEDICAID, SELFPAY ==
[2024-07-31 10:49] LABS: Basophils # 0.1 K/mm3 (0-0.2); Basophils % 0.9 % (0.1-2.0); Eosinophils # 0.1 K/mm3 (0.0-0.4); Eosinophils % 1.5 % (0.1-12.0); Hematocrit 43.8 % (42.0-52.0); Hemoglobin 13.9 g/dL (14.1-18.0); Lymphocytes % 21.2 % (10-50); Mean Corpuscular HGB Conc 31.7 g/dL (31.8-35.4); Mean Corpuscular Hemoglobin 27.2 pg (27.0-31.2); Mean Corpuscular Volume 85.7 fl (80-94); Mean Platelet Volume 9.7 fl (7.4-10.4); Monocytes # 0.5 K/mm3 (0.1-1.0); Monocytes % 4.9 % (1.7-9.3); Neutrophils # 6.6 K/mm3 (1.8-7.8); Neutrophils % 71.4 % (37.0-80.0); Platelet Count 183 K/mm3 (142-424); Red Blood Count 5.11 M/mm3 (4.60-6.20); Red Cell Distribution Width 16.6 % (11.5-17.5); White Blood Count 9.3 K/mm3 (4.8-10.8)
[2024-07-31 11:59] LABS: Blood Urea Nitrogen 13 mg/dl (9-20); Calcium 8.9 mg/dl (8.4-10.2); Estimated Glomerular Filt Rate 135 ml/min (>60); GFR (African American) 164 ML/MIN (>60); Glucose 340 mg/dl (74-100)
[2024-07-31 12:00] LABS: Carbon Dioxide 29 mmol/L (22.0-30.0); Chloride 100 mmol/L (98-107); Potassium 4.4 mmoL/L (3.5-5.1)
[2024-07-31 12:09] LABS: Anion Gap 8.4 mEq/L (5-15); Sodium 133 mmol/L (136-145)
== END 2024-07-31 23:59 | disposition home or self-care (01) ==
LOC: LAB 10:16
PROVIDERS: PCP Internal Medicine Adolescent Medicine; Visit Provider Internal Medicine
DX: I25.10 Atherosclerotic heart disease of native coronary artery without angina pectoris (principal)
CPT/HCPCS: 36415; 80048; 85025

== ENCOUNTER 2024-08-26 12:10 | Day surgery (SDC) | payer MEDICARE, MEDICAID, SELFPAY ==
[2024-08-26] VITALS (9 sets, daily range): BP systolic 143–186; BP diastolic 75–103; PULSE 90–94; RESP 15–20; TEMP 36.5–36.8; O2SAT 91–100; BMI 34.4
[2024-08-26] MEDS: LACTATED RINGERS 1000ML 1,000 ML 25 ML IV (12:33)
--- NOTE | 2024-08-26 12:49 | P.PNANES_ITS ---
[facility] Disclaimer: The information contained in this section may have been updated after the patient was seen, as this information can be updated by other users. Medical History GERD (gastroesophageal reflux disease) Abnormal nuclear cardiac imaging test Tricuspid regurgitation Mitral regurgitation Smoking greater than 30 pack years Dyspnea on exertion Diabetes mellitus, type 2 Dyspnea CAD (coronary artery disease) HTN (hypertension) Surgical History History of colonoscopy History of knee replacement History of right heart catheterization (RHC) Family History Other Family history of acute heart failure Family history of cancer Social History Smoking Status: Current every day smoker tobacco type: cigarettes packs per day: 1 second hand exposure: No alcohol intake: never substance use type: denies use current occupational status: unemployed Travel in the last 8 weeks: None household members: significant other housing: house current occupational exposures/hazards: No [facility] Anesthesia Checklist Patient Identification Patient Identification: Arm Band Structural Data Admitted From: Home Planned Operative Procedure/s: I&D Back Abscess Consent for Planned Operative Procedure(s) Verified: Yes Verified Documents: Surgical Consent and History and Physical NPO Status Verified Time NPO: 00:00 Additional verifications Anesthesia Reactions: No Hx Blood Transfusions: No Blood Transfusion Reaction: No Airway Assessment Mallampati Score:: Class II C-Spine Mobility Assessed: Yes TMJ Mobility Assessed: Yes Dentition: Edentulous Neurological Assessment Level of Consciousness: Awake, Alert and Appropriate Anesthesia Plan Anesthesia Risk discussed: Yes Anesthesia Plan: Verified ASA Class: III Anesthesia Type: General
[2024-08-26] MEDS: CEFAZOLIN SODIUM 2 GM in 0.9 % SODIUM CHLORIDE 100 ML IV (13:04)
[2024-08-26] MEDS: LIDOCAINE 1% 20ML MDV 40 ML (13:21)
--- NOTE | 2024-08-26 13:43 | EXP.OP.NOTE ---
Date of procedure: 08/26/24 Pre-op Diagnosis:: Complex mid lower back abscess (abscessed cyst) Right lateral thigh abscess Post-op Diagnosis:: Same Procedure performed:: Incision and drainage/debridement of complex mid lower back abscessed cyst Incision and drainage/debridement of right lateral thigh abscess Surgeon:: Ceasar Real MD [address] SUPERVISOR:: Benson Henao Anesthesia: LMA Estimated blood loss (mL): 15 Operative findings:: 7 cm complex deep subcutaneous tissue abscess along mid lower back (abscessed cyst) 2.5 cm deep subcutaneous tissue abscess along right lateral thigh Operative note:: After informed consent was obtained the patient was taken to the operating room and placed in the left lateral position. General anesthesia with laryngeal mask airway was achieved. His lower back and right lateral thigh were prepped and draped in a sterile fashion. After infiltration local anesthetic an elliptical incision was made around the central portion of the right lateral thigh abscess. The underlying necrotic subcutaneous tissue with complex cyst cavity was incised and drained (essentially debrided). This was accomplished with electrocautery. The wound was packed open after hemostasis was achieved with electrocautery. The large complex lower back abscess was then approached. The central portion of the lesion was excised utilizing electrocautery in an elliptical fashion. The deeper subcutaneous tissue was dissected to the level of the cyst cavity/abscess cavity. Purulent fluid was obtained for Gram stain/culture. The overlying necrotic subcutaneous tissue was resected with electrocautery. Electrocautery was then utilized to achieve hemostasis and the wound was packed open. Dressings were applied and the patient was transferred to recovery in stable condition. Condition: stable Disposition: PACU Specimens:: Fluid for Gram stain/culture Complications:: No immediate
--- NOTE | 2024-08-26 13:59 | EXP.ANES.I ---
[facility] Anesthesia Record Part I Anesthesia Record I Intake, IV Amount: 1,600 Hydration: Adequate Estimated blood loss (mL): 15 Urine output (mL): 0 Blood Products used (#): none and whole blood Blood Pressure: 152/101 SaO2: 91 Pulse Rate: 94 Airway Patency: Patent Respiratory Rate: 18 Temperature: 98.3 F Patient is:: Drowsy and Stable Stable to PACU at:: 13:50
[2024-08-26 14:03] LABS: POC Glucose,Bedside 243 (70-110)
[2024-08-26 15:23] LABS: POC Glucose,Bedside 274 (70-110)
--- NOTE | 2024-08-27 07:57 | EXP.ANES.II ---
[facility] Anesthesia Record Part II Anesthesia Record Part II Discharge Time: 14:14 Destination: Surgical Day Care (OP Surgery) PACU nurse assessment reviewed?: Yes Patient Condition:: Good Anesthesia Complications:: None Swallowing reflex intact?: Yes Airway Patency: Patent Cyanosis?: No Blood Pressure: 186/88 SaO2: 95 Respiratory Rate: 15 Pulse Rate: 92 Temperature: 98.1 F Mental Status: Alert & Oriented Pain level:: 0 Nausea and/or vomitting:: None Intake, IV Amount: 0 Hydration: Adequate
[2024-08-27 07:58] VITALS: BP 186/88; PULSE 92; RESP 15; TEMP 36.7; O2SAT 95
== END 2024-08-26 14:50 | disposition home or self-care (01) ==
PROVIDERS: PCP Internal Medicine Adolescent Medicine; Visit Provider Surgery
PROC: (CPT 10060; principal; 2024-08-26 13:00)
DX: L02.212 Cutaneous abscess of back [any part, except buttock and flank] (principal); L02.415 Cutaneous abscess of right lower limb; E11.8 Type 2 diabetes mellitus with unspecified complications; Z79.4 Long term (current) use of insulin
CPT/HCPCS: 10060; 10061; 82962; 87075; 87205; J0690; J1100; J2250; J2405; J3010; J7120

== ENCOUNTER 2025-01-02 14:06 | Outpatient (CLI) | payer MEDICARE, MEDICAID, SELFPAY ==
--- NOTE | 2025-01-02 14:11 | CT_ITS ---
FINAL REPORT TECHNIQUE: Axial images were obtained from the lung apex to the mid abdomen by computed tomography. This study was performed with techniques to keep radiation doses as low as reasonably achievable (ALARA). Individualized dose reduction techniques using automated exposure control or adjustment of mA and/or kV according to the patient's size were employed. CLINICAL HISTORY: HX OF NICOTINE USE current smoker 2ppd x50 years COMPARISON: 11/07/2022 FINDINGS: CHEST CT LOW DOSE CTDI vol (mGy): 2.90 DLP (mGy-cm): 96.38 There is no axillary adenopathy. There is no hilar or mediastinal adenopathy. The heart is normal in size. There is no pericardial or pleural effusion. There is a 3 mm left apical nodule well-seen on image 51 of series 2. There is a 2 mm subpleural nodule in the posterior medial right lower lobe well-seen on image 199. This was not evident on the prior exam. Note is made of emphysema. There is long segment wall thickening of the esophagus, may indicate esophagitis. Mild thyroidmegaly is identified. IMPRESSION: Tiny lung nodules, likely benign. Wall thickening of the esophagus raising question of esophagitis. Lung RADS category 2. Recommend 12 month follow-up low-dose chest CT. Reviewed, Interpreted and Dictated by Bill Beauchamp MD Transcribed by Linda Robb Authenticated and [facility]
== END 2025-01-02 23:59 | disposition home or self-care (01) ==
LOC: RAD 14:08
PROVIDERS: PCP Internal Medicine Adolescent Medicine; Visit Provider Nurse Practitioner Family
DX: Z87.891 Personal history of nicotine dependence (principal)
CPT/HCPCS: 71271

== ENCOUNTER 2025-04-22 06:34 | Day surgery (SDC) | payer MEDICARE, MEDICAID, SELFPAY ==
[2025-04-17 13:34] VITALS: BMI 34.4
[2025-04-22 07:22] VITALS: BP 140/72; PULSE 72; RESP 18; TEMP 36.2; O2SAT 96
[2025-04-22] MEDS: LACTATED RINGERS 1000ML 1,000 ML 50 ML IV (07:30)
[2025-04-22 07:32] LABS: POC Glucose,Bedside 125 (70-110)
--- NOTE | 2025-04-22 07:36 | EXP.ANES.CKL ---
[facility] Disclaimer: The information contained in this section may have been updated after the patient was seen, as this information can be updated by other users. Medical History GERD (gastroesophageal reflux disease) Abnormal nuclear cardiac imaging test Tricuspid regurgitation Mitral regurgitation Smoking greater than 30 pack years Dyspnea on exertion Diabetes mellitus, type 2 Dyspnea CAD (coronary artery disease) HTN (hypertension) Surgical History History of incision and drainage History of colonoscopy History of knee replacement History of right heart catheterization (RHC) Family History Other Family history of acute heart failure Family history of cancer Social History Smoking Status: Current every day smoker tobacco type: cigarettes packs per day: 1 second hand exposure: No alcohol intake: never substance use type: denies use current occupational status: unemployed Travel in the last 8 weeks?: None household members: significant other housing: house current occupational exposures/hazards: No Have you lived/traveled outside US in past 30 days?: No Contact w/someone who lives/traveled outside US past 30 days?: No Exposure to someone with infectious disease in past 14 days?: No Do you have a fever (greater than 100.4 F or 38 C)?: No Have you tested positive for COVID-19?: No Exposed to someone with COVID-19 in past 14 days?: No Do you have a sore throat?: No Do you have a cough?: No Do you have any weakness?: No Do you have any diarrhea?: No Are you experiencing any unusual bleeding?: No Do you have any muscle aches/pain?: No Do you have any abdominal pain?: No Are you experiencing loss of taste or smell?: No [facility] Anesthesia Checklist Patient Identification Patient Identification: Arm Band Structural Data Admitted From: Home Planned Operative Procedure/s: EGD Consent for Planned Operative Procedure(s) Verified: Yes Verified Documents: Surgical Consent and History and Physical NPO Status Verified Time NPO: 00:00 Additional verifications Anesthesia Reactions: No Hx Blood Transfusions: No Blood Transfusion Reaction: No Airway Assessment Mallampati Score:: Class II C-Spine Mobility Assessed: Yes TMJ Mobility Assessed: Yes Dentition: Edentulous Neurological Assessment Level of Consciousness: Awake, Alert and Appropriate Anesthesia Plan Anesthesia Risk discussed: Yes Anesthesia Plan: Verified ASA Class: III Anesthesia Type: MAC
--- NOTE | 2025-04-22 07:54 | EXP.HP ---
History of Present Illness *Admission Date: 04/22/25 *Reason for visit:: GERD/esophageal wall thickening on CAT scan *History of present illness: Mrs. Garcia is a 64-year-old female who is here for diagnostic EGD. The patient has had some nausea and belching. CAT scan showed long segment of wall thickening of the esophagus. The examination is deemed medically necessary for diagnostic EGD. The patient has been seen, interviewed and examined prior to the procedure by both myself and the anesthesia provider. [facility] Disclaimer: The information contained in this section may have been updated after the patient was seen, as this information can be updated by other users. Medical History GERD (gastroesophageal reflux disease) Abnormal nuclear cardiac imaging test Tricuspid regurgitation Mitral regurgitation Smoking greater than 30 pack years Dyspnea on exertion Diabetes mellitus, type 2 Dyspnea CAD (coronary artery disease) HTN (hypertension) Surgical History History of incision and drainage History of colonoscopy History of knee replacement History of right heart catheterization (RHC) Family History Other Family history of acute heart failure Family history of cancer Social History Smoking Status: Current every day smoker tobacco type: cigarettes packs per day: 1 second hand exposure: No alcohol intake: never substance use type: denies use current occupational status: unemployed Travel in the last 8 weeks?: None household members: significant other housing: house current occupational exposures/hazards: No Have you lived/traveled outside US in past 30 days?: No Contact w/someone who lives/traveled outside US past 30 days?: No Exposure to someone with infectious disease in past 14 days?: No Do you have a fever (greater than 100.4 F or 38 C)?: No Have you tested positive for COVID-19?: No Exposed to someone with COVID-19 in past 14 days?: No Do you have a sore throat?: No Do you have a cough?: No Do you have any weakness?: No Do you have any diarrhea?: No Are you experiencing any unusual bleeding?: No Do you have any muscle aches/pain?: No Do you have any abdominal pain?: No Are you experiencing loss of taste or smell?: No Other Medical History Have you received the Flu Vaccine for this season: No Have you received the Pneumonia Vaccine: Yes Review of Systems Review of Systems Review of systems (narrative): Negative *Cardiovascular Comments: Negative *Gastrointestinal Comments: Negative *Genitourinary Comments: Negative *Musculoskeletal Comments: Negative *Neurologic Comments: Negative Meds Home Medications and Allergies Home Medications ?Medication ?Instructions ?Recorded ?Confirmed ?Type gemfibrozil 600 mg tablet 600 mg PO HS Cholesterol 02/12/20 04/22/25 History nitroglycerin 0.4 mg sublingual 0.4 mg sublingual Q5M PRN chest 09/18/22 04/22/25 Rx tablet pain #25 tabs bisoprolol fumarate 5 mg tablet 5 mg PO DAILY Heart disease #90 11/27/22 04/22/25 Rx tabs albuterol sulfate 90 mcg/actuation 2 puff inhalation QID PRN 07/18/23 04/22/25 Rx aerosol inhaler (ProAir HFA) shortness of breath or wheezing 30 days #8.5 grams atorvastatin 80 mg tablet See Rx Instructions .Route 11/27/23 04/22/25 Rx .COMPLEX #90 tabs insulin human U-100 NPH-regulr See Rx Instructions .Route .COMPLEX 12/13/23 04/22/25 History 70-30 mix 100 unit/mL subcutaneous susp (Novolin 70/30 U-100 Insulin) pregabalin 75 mg capsule 75 mg PO BID 06/12/24 04/22/25 History clopidogrel 75 mg tablet See Rx Instructions .Route 06/30/24 04/22/25 Rx .COMPLEX #90 tabs insulin degludec 100 unit/mL 50 unit SQ DAILY 07/22/24 04/22/25 History subcutaneous solution (Tresiba U-100 Insulin) insulin glargine 100 60 unit SQ DAILY 07/22/24 04/22/25 History unit-lixisenatide 33 mcg/mL subcutaneous pen (Soliqua 100/33) isosorbide mononitrate 60 mg 120 mg (2 x 60 mg) PO DAILY #60 07/22/24 04/22/25 Rx tablet,extended release 24 hr tabs aspirin 81 mg chewable tablet 81 mg PO DAILY #30 tabs 07/29/24 04/22/25 Rx furosemide 20 mg tablet 20 mg PO DAILY 02/10/25 04/22/25 History losartan 25 mg tablet 25 mg PO DAILY 02/12/25 04/22/25 History omeprazole 40 mg capsule,delayed 40 mg PO DAILY 02/12/25 04/22/25 History release New Prescriptions to Start Prescriptions: Allergies Allergy/AdvReac Type Severity Reaction Status Date / Time sulfamethoxazole (From Allergy Severe S-SKIN Verified 04/22/25 07:16 Bactrim) ERUPTIONS (BLISTERS) trimethoprim (From Bactrim) Allergy Severe S-SKIN Verified 04/22/25 07:16 ERUPTIONS (BLISTERS) Exam Data for Last 24 hours Vital signs and Labs for Last 24 Hours: Temp Pulse Resp BP Pulse Ox O2 Del Method 97.2 F L 72 18 140/72 96 Room Air 04/22/25 07:22 04/22/25 07:22 04/22/25 07:22 04/22/25 07:22 04/22/25 07:22 04/22/25 07:22 Laboratory Results - last 24 hr 04/22/25 07:25: POC Glucose 125 H *Routine HEENT Exam Head: Present normocephalic Eye: Present EOMI and PERRL ENT: Present mucous membranes moist *Routine Neck Exam Neck: Present supple *Routine Respiratory Exam Respiratory: Present CTA bilaterally *Routine Cardiovascular Exam Cardiovascular: Present RRR *Routine Abdominal Exam Abdominal: Present soft and normoactive bowel sounds; Absent tenderness *Routine Rectal Exam Rectal:: deferred *Routine Genitalia Exam Genitalia:: deferred *Routine Extremities Exam Extremities: Absent cyanosis, clubbing or edema *Routine Skin Exam Skin: Present warm; Absent rash *Routine Neurological Exam Neurological: Present alert and oriented X3 Assessment and Plan *Assessment and plan (1) Nausea: Status: Acute Category: Medical Code(s): R11.0 - Nausea (2) Belching: Status: Acute Category: Medical Code(s): R14.2 - Eructation (3) Abnormal CT scan, esophagus: Status: Acute Category: Medical Code(s): R93.3 - Abnormal findings on diagnostic imaging of other parts of digestive tract Plan A/P: 1. Abnormal esophagus with long segment thickening on CAT scan with symptoms of belching and nausea is the preprocedural diagnosis. The patient will be anesthetized/sedated using MAC sedation. The patient has been seen and examined. Cardiac and lung assessment prior to the examination is stable. Proceed with planned diagnostic EGD.
--- NOTE | 2025-04-22 07:59 | P.PCN_ITS ---
[facility] Procedure Note Date: 04/22/25 Time: 08:08 Procedure Note:: Upper Endoscopy Procedure Report: Esophagogastroduodenoscopy with cold biopsies Endoscopost: Cyril Banks II, MD Referring Physician: Anders Hernandez M.D. Date of Procedure: April 22, 2025 Equipment: Olympus GIF 190 standard upper endoscope Sedation: MAC sedation Indications: Mr. Garcia is a 64-year-old gentleman who was referred due to a CAT scan showing long segment wall thickening of the esophagus concerning for esophagitis. The patient has had nausea and belching. He reports early satiety. He reports no heartburn, reflux or dysphagia. He has no abdominal pain. He has lost over 50 pounds in the last 5 or 10 years. He reports no melena or hematochezia or hematemesis. Procedure: Prior to the procedure, a history and physical exam was performed, and patient's medications and allergies were reviewed. The risks, benefits and alternatives of the sedation and procedure were discussed with the patient. All questions were answered and informed consent was obtained. The patient was brought to the procedure room. Patient identification and proposed procedure were verified by the physician and the nurse. The patient was placed in a left lateral decubitus position and the scope was passed under direct vision. Throughout the procedure, the patient's blood pressure, pulse, and oxygen saturations were monitored continuously. The upper GI endoscopy was accomplished without difficulty. The patient tolerated the procedure well. Findings: The scope was passed directly into the upper esophagus and advanced to the third portion of the duodenum. The post bulbar duodenum and duodenal bulb were normal with normal mucosa and conniventes. The scope was withdrawn through a normal duodenal bulb and pylorus into the stomach. There was some bile reflux with mild linear antral gastropathy. The body and fundus of the stomach were normal. Upon retroflexion there was no hiatal hernia. Cold biopsies were taken from the antrum. The scope was then withdrawn into the esophagus. There was no evidence of reflux esophagitis or Byers's. There were no strictures, rings or mucosal abnormalities. A biopsy was taken at the GE junction. There were strong tertiary contractions and evidence of moderate esophageal dysmotility. The remainder of the esophageal mucosa was normal. Impression: 1. Moderate esophageal dysmotility 2. Mild antral gastropathy Plan: I will follow-up the biopsies. We will discuss some additional treatment options for his nausea and belching.
[2025-04-22 08:10] VITALS: BP 127/82; PULSE 78; RESP 16; TEMP 36.2; O2SAT 94
[2025-04-22 08:20] VITALS: BP 126/72; PULSE 84; RESP 16; O2SAT 96
[2025-04-22 08:30] VITALS: BP 107/53; PULSE 79; RESP 16; O2SAT 96
[2025-04-22 08:40] VITALS: BP 111/66; PULSE 76; RESP 16; O2SAT 96
== END 2025-04-22 08:50 | disposition home or self-care (01) ==
PROVIDERS: PCP Internal Medicine Adolescent Medicine; Visit Provider Internal Medicine Gastroenterology
PROC: 0DJ08ZZ Inspection of Upper Intestinal Tract, Via Natural or Artificial Opening Endoscopic (ICD-10-PCS; principal; 2025-04-22 08:30)
DX: K31.89 Other diseases of stomach and duodenum (principal); K22.4 Dyskinesia of esophagus; K21.9 Gastro-esophageal reflux disease without esophagitis; R11.0 Nausea; R14.2 Eructation; E11.9 Type 2 diabetes mellitus without complications; I10 Essential (primary) hypertension; I25.10 Atherosclerotic heart disease of native coronary artery without angina pectoris; F17.210 Nicotine dependence, cigarettes, uncomplicated; Z79.899 Other long term (current) drug therapy; Z79.4 Long term (current) use of insulin; Z79.02 Long term (current) use of antithrombotics/antiplatelets; Z79.82 Long term (current) use of aspirin; Z88.2 Allergy status to sulfonamides; Z88.1 Allergy status to other antibiotic agents; R93.3 Abnormal findings on diagnostic imaging of other parts of digestive tract
CPT/HCPCS: 43239; 82962; 88305; J7120

== ENCOUNTER 2025-08-06 08:58 | Outpatient (CLI) | payer MEDICARE, MEDICAID, SELFPAY ==
--- OUTSIDE RECORDS SUMMARY | 2025-02-28 17:30 | XMS_ITS ---
Author Organization [facility] JCARLOS De La Fuente MARIANO Address [address] [facility] [address] [place] [address] Care Team Providers Care Critical Care Rn Name Role Phone Anders Hernandez Primary Care Provider Anders Hernandez Unavailable Unavailable Migration, Provider Unavailable Unavailable Allergies Allergen (clinical drug ingredient) Drug/Non Drug Allergy documented on EMR Reaction Allergy Type Onset Date Status sulfamethoxazole / trimethoprim Bactrim rash Drug Allergy Active REASON FOR VISIT [facility] Encounter Medications Medication SIG (Take, Route, Frequency, Duration) Notes Start Date End Date Status Tresiba 100 UNITS/ML INJECT 50 UNITS SUBCUTANEOUSLY EVERY EVENING KEEP IN REFRIGERATOR *Please review and pick correct strength-formulat ion from [facility] options. If intended option is not shown, discontinue and re-order from Quick Search* Active ONE TOUCH ULTRA LANCETS DIRECTED TWICE DAILY; Duration: 90 DAYS *Please review for potential replacement for e-prescription and drug interaction check* Active BD PEN NEEDLE 32G SUBCUTANEOUS NEEDED FOR DIABETIC INJECTIONS; Duration: 33 DAYS *Please review for potential replacement for e-prescription and drug interaction check* Active Insulin Syringe 0.5 31G USE WITH INSULIN INJECTION; Duration: 33 DAYS *Please review and pick correct [facility]ulat [facility]. If intended option is not shown, discontinue and re-order from Quick Search* Active Pregabalin 100 MG 1 cap(s) orally 2 times a day; Duration: 30 days 02/27/2025 Active SOLIQUA 100/33 100 UNITS-33 MCG/ML INJECT 60 UNITS UNDER THE SKIN EVERY MORNING; Duration: 30 DAYS *Please review for potential replacement for e-prescription and drug interaction check* Active NovoLIN 70/30 (70-30) 100 UNIT/ML inject 12 units subcutaneously with every meal; Duration: 30 days Active Losartan Potassium 25 MG 1 tab(s) orally once a day; Duration: 90 days Active NovoLOG FlexPen 100 UNIT/ML 25 units subcutaneously 3 times a day (before meals); Duration: 30 days 08/23/2024 Active Bisoprolol Fumarate 5 MG 1 tab(s) orally once a day; Duration: 90 days Active Isosorbide Mononitrate ER 60 MG 2 tab(s) orally once a day (in the morning); Duration: 90 days Active Fluticasone Propionate 50 MCG/ACT 1 spray(s) in each nostril once a day; Duration: 30 days 09/23/2024 Active Atorvastatin Calcium 80 MG 1 tab(s) orally once a day; Duration: 90 days 02/24/2021 Active Clopidogrel Bisulfate 75 MG 1 tab(s) orally once a day; Duration: 90 days Active Pantoprazole Sodium 40 MG 1 tab(s) orally once a day; Duration: 90 days 04/14/2024 Active Gemfibrozil 600 MG 1 tab(s) orally at bedtime; Duration: 90 days Active ALL DAY ALLERGY (CETIRIZINE) 10 MG 1 TAB(S) ORALLY ONCE A DAY; Duration: 30 DAYS *Please review for potential replacement for e-prescription and drug interaction check* 09/23/2024 Active Furosemide 20 MG 1 tab(s) orally once a day; Duration: 30 days 09/16/2024 Active Nitroglycerin 0.4 MG 1 tab(s) sublingual ly every 5 minutes; Duration: 30 days 08/22/2024 Active ONE TOUCH TEST STRIPS DIRECTED FOR DIABETIC TESTING TEST BID; Duration: 30 DAYS diagnosis: E11.9 and Z79.4 *Please review for potential replacement for e-prescription and drug interaction check* 02/27/2012 Active Aspirin 81 MG 1 tab(s) orally once a day Active Encounters Encounter Location Date Provider Diagnosis [facility] MARIANO [address] [facility] [address] [place] [address] 02/28/2025 Provider Migration Type 2 diabetes mellitus with diabetic neuropathy, unspecified E11.40 and Type 2 diabetes mellitus with polyneuropathy E11.42 Assessments Encounter Date Diagnosis (ICD Code) Assessment Notes Treatment Notes Treatment Clinical Notes Section Notes 02/28/2025 Type 2 diabetes mellitus with diabetic neuropathy, unspecified (ICD-10 - E11.40) 02/28/2025 Type 2 diabetes mellitus with polyneuropathy (ICD-10 - E11.42) Plan Of Treatment Medication Medication Name Sig Start Date Stop Date Notes Tresiba 100 UNITS/ML INJECT 50 UNITS SUBCUTANEOUSLY EVERY EVENING KEEP IN REFRIGERATOR *Please review and pick correct strength-formulation from [facility] options. If intended option is not shown, discontinue and re-order from Quick Search* Pregabalin 100 MG 1 cap(s) orally 2 ti mes a day; Duration: 30 days 02/27/2025 Next Appt Details Provider Name:Sarah Guzman, 08/13/2025 09:15:00 AM, [address], [address], [place], [address], Progress Notes * Annie GARCIA DDOB: 9 (65 yo M)Acc No.[id number]:02/28/2025 Patient: Dean Annie CASTORENA Provider: Cheyenne Lara :1960 A ge:64 Y S ex:Male Date:02/28/2025 Address:[address] [place] [address] , [place], [id number] Pcp:Anders Hernandez Subjective: * Chief Complaints: * 1 . [facility] Encounter. * Medical History: * Medications: T aking Aspirin 81 MG Tablet Chewable 1 tab(s) orally once a day , Taking ONE TOUCH TEST STRIPS DIRECTED FOR DIABETIC TESTING TEST BID , Notes to Pharmacist: diagnosis: E11.9 and Z79.4 *Please review for potential replacement for e-prescription and drug interaction check*, Taking Nitroglycerin 0.4 MG Tablet Sublingual 1 tab(s) sublingually every 5 minutes , Taking Gemfibrozil 600 MG Tablet 1 tab(s) orally at bedtime , Taking Furosemide 20 MG Tablet 1 tab(s) orally once a day , Taking ALL DAY ALLERGY (CETIRIZINE) 10 MG TABLET 1 TAB(S) ORALLY ONCE A DAY , Notes to Pharmacist: *Please review for potential replacement for e-prescription and drug interaction check*, Taking Fluticasone Propionate 50 MCG/ACT Suspension 1 spray(s) in each nostril once a day , Taking Isosorbide Mononitrate ER 60 MG Tablet Extended Release 24 Hour 2 tab(s) orally once a day (in the morning) , Taking Clopidogrel Bisulfate 75 MG Tablet 1 tab(s) orally once a day , Taking Atorvastatin Calcium 80 MG Tablet 1 tab(s) orally once a day , Taking Pantoprazole Sodium 40 MG Tablet Delayed Release 1 tab(s) orally once a day , Taking Losartan Potassium 25 MG Tablet 1 tab(s) orally once a day , Taking Bisoprolol Fumarate 5 MG Tablet 1 tab(s) orally once a day , Taking NovoLOG FlexPen 100 UNIT/ML Solution Pen-injector 25 units subcutaneously 3 times a day (before meals) , Taking SOLIQUA 100/33 100 UNITS-33 MCG/ML SOLUTION INJECT 60 UNITS UNDER THE SKIN EVERY MORNING , Notes to Pharmacist: *Please review for potential replacement for e-prescription and drug interaction check*, Taking NovoLIN 70/30 (70-30) 100 UNIT/ML Suspension inject 12 units subcutaneously with every meal , Taking ONE TOUCH ULTRA LANCETS DIRECTED TWICE DAILY , Notes to Pharmacist: *Please review for potential replacement for e-prescription and drug interaction check*, Taking Insulin Syringe 0.5 31G USE WITH INSULIN INJECTION , Notes to Pharmacist: *Please review and pick correct strength-formulation from [employer] options. If intended option is not shown, discontinue and re-order from Quick Search*, Taking BD PEN NEEDLE 32G SINGLE USE NEEDLE SUBCUTANEOUS NEEDED FOR DIABETIC INJECTIONS , Notes to Pharmacist: *Please review for potential replacement for e-prescription and drug interaction check* * Allergies: B actrim: rash. Objective: * Vitals: Assessment: * Assessment: 1. T ype 2 diabetes mellitus with diabetic neuropathy, unspecified - E11.40 (Primary) ? 2 . T ype 2 diabetes mellitus with polyneuropathy - E11.42 Plan: * Treatment: 2. T ype 2 diabetes mellitus with polyneuropathy Refill Pregabalin Capsule, 100 MG, 1 cap(s), orally, 2 times a day, 30 days, 60 Capsule, Refills 0.? * * Electronic signature of Prov ider Migration on 08/06/2025 at 09:12 AM EDT Sign off status: Pending * Provider: Cheyenne black Migration Date: 0 02/28/2025 Generated for Alfreda cordero/Guillermo/Suzanitting on: 0 08/06/2025 09:12 AM EDT
--- OUTSIDE RECORDS SUMMARY | 2025-04-16 05:30 | XMS_ITS ---
Author Organization [facility] Address [address] [facility] [address] [facility] [address] [place] [address] Care Team Providers Care Aligner Name Role Phone Anders Hernandez Primary Care Provider Anders Hernandez Unavailable Unavailable Sarah Welch [phone] REASON FOR VISIT 4 Month F/U Encounters Encounter Location Date Provider Diagnosis [facility] [address] [place], [place] [address] 04/16/2025 Sarah Welch Plan Of Treatment Next Appt Details Provider Name:Sarah Guzman, 08/13/2025 09:15:00 AM, [address], [address], [place], [place], [address], Progress Notes * Annie GARCIA DDOB: (65 yo M)Acc No.[id number]:04/16/2025 Progress Notes Patient: Dean Annie CASTORENA Provider: Kimmy Welch APRN :1960 A ge:64 Y S ex:Male Date:04/16/2025 Address:[address] [place] [address] , [id number] Pcp:Anders Hernandez Subjective: * Chief Complaints: * 1 . 4 Month F/U. * Medical History: Objective: * Vitals: Assessment: Plan: * Treatment: * * Electronic signature of Fletcher Welch APRN on 08/06/2025 at 09:12 AM EDT Sign off status: Pending * Provider: Kimmy Welch APRN Date: 0 04/16/2025 Generated for Alfreda cordero/Guillermo/Andrysmtessy on: 0 08/06/2025 09:12 AM EDT
--- OUTSIDE RECORDS SUMMARY | 2025-05-12 06:00 | XMS_ITS ---
Author Organization [facility] Address [address] [facility] [address] [facility] [address] [place] [address] Care Team Providers Care Collect On Delivery Clerk Name Role Phone Anders Hernandez Primary Care Provider Anders Hernandez Unavailable Unavailable Sarah Welch [phone] REASON FOR VISIT Labs Encounters Encounter Location Date Provider Diagnosis [facility] [address] [facility] [address] [facility] [address] [place], [place] [address] 05/12/2025 Sarah Welch Plan Of Treatment Next Appt Details Provider Name:Sarah Guzman, 08/13/2025 09:15:00 AM, [address] [facility] [address] [facility], [address], [place], [address], Progress Notes * Annie GARCIA DDOB: (65 yo M)Acc No.[id number]:05/12/2025 LABS Patient: Dean Annie CASTORENA Provider: Kimmy Welch APRN :1960 A ge:64 Y S ex:Male Date:05/12/2025 Address:[address] [place] [address] , [id number] Pcp:Anders Hernandez Subjective: * Chief Complaints: * 1 . Labs. * Medical History: Objective: * Vitals: Assessment: Plan: * Treatment: * * Electronic signature of Fletcher Welch APRN on 08/06/2025 at 09:13 AM EDT Sign off status: Pending * Provider: Kimmy Welch APRN Date: 0 05/12/2025 Generated for Alfreda cordero/Guillermo/Catherine on: 0 08/06/2025 09:13 AM EDT
--- OUTSIDE RECORDS SUMMARY | 2025-05-19 04:30 | XMS_ITS ---
Author Organization [facility] Address [address] [facility] [address] [facility] [address] [place] [address] Care Team Providers Care Furniture Decals Inspector Name Role Phone Anders Hernandez Primary Care Provider Anders Hernandez Unavailable Unavailable Sarah Welch [phone] REASON FOR VISIT 3 Month F/U Encounters Encounter Location Date Provider Diagnosis [facility] [address] [facility] [address] [place], [place] [address] 05/19/2025 Sarah Welch Plan Of Treatment Next Appt Details Provider Name:Sarah Guzman, 08/13/2025 09:15:00 AM, [address], [place], [place], [address], Progress Notes * Annie GARCIA DDOB: (65 yo M)Acc No.[id number]:05/19/2025 Progress Notes Patient: Dean Annie CASTORENA Provider: Kimmy Welch APRN :1960 A ge:65 Y S ex:Male Date:05/19/2025 Address:[address] [place] [address] , [id number] Pcp:Anders Hernandez Subjective: * Chief Complaints: * 1 . 3 Month F/U. * Medical History: Objective: * Vitals: Assessment: Plan: * Treatment: * * Electronic signature of Fletcher Welch APRN on 08/06/2025 at 09:12 AM EDT Sign off status: Pending * Provider: Kimmy Welch APRN Date: 05/19/2025 Generated for Alfreda cordero/Guillermo/Andrysmtessy on: 0 08/06/2025 09:12 AM EDT
--- OUTSIDE RECORDS SUMMARY | 2025-08-06 09:13 | XMS_ITS | Patient Health Record ---
Author Organization [facility] Address [address] [facility] [address] [place] [address] Care Team Providers Care Air Cargo Specialist Name Role Phone Anders Hernandez Primary Care Provider [phone] Anders Hernandez Unavailable Unavailable Sandi León Unavailable [phone] Sarah Welch Unavailable [phone] Migration, Provider Unavailable Unavailable Allergies Allergen (clinical drug ingredient) Drug/Non Drug Allergy documented on EMR Reaction Allergy Type Onset Date Status sulfamethoxazole / trimethoprim Bactrim rash Drug Allergy Active Results Component Value Reference Range Notes CT Scan : Chest, Lung Cancer Screening Reviewed date:01/06/2025 06:34:44 AM Interpretation: Performing Lab: Notes/Report: LIPID PANEL, STANDARD ([id number]) Reviewed date:01/06/2025 06:34:44 AM Interpretation: Performing Lab:CB, [facility] [address] [facility], [facility] HospitalTxpyOO[address] Dalton Arnold Notes/Report: NON-FASTING; NON-FASTING; NON-FASTING; NON-FASTING FASTING:YES FASTING: YES CHOLESTEROL, TOTAL 104 <200 mg/dL HDL CHOLESTEROL 25 > OR = 40 mg/dL TRIGLYCERIDES 226 <150 mg/dL If a non-fasting specimen was collected, consider repeat triglyceride testing on a fasting specimen if clinically indicated. Bala et al. J. of Clin. Lipidol. 2015;9:129-169. LDL-CHOLESTEROL 51 Reference range: <100 Desirable range <100 mg/dL for primary prevention; <70 mg/dL for patients with CHD or diabetic patients with > or = 2 CHD risk factors. LDL-C is now calculated using the Nic calculation, which is a validated novel method providing better accuracy than the Friedewald equation in the estimation of LDL-C. Landen RIVAS et al. JUANY. 2013;310(19): 6532-4354 (http://education.Zoomabet.Varaa.com/faq/BKL758) CHOL/HDLC RATIO 4.2 <5.0 (calc) NON HDL CHOLESTEROL 79 <130 mg/dL (calc) For patients with diabetes plus 1 major ASCVD risk factor, treating to a non-HDL-C goal of <100 mg/dL (LDL-C of <70 mg/dL) is considered a therapeutic option. COMPREHENSIVE METABOLIC PANE Lola ([id number]) Reviewed date:01/06/2025 06:34:44 AM Interpretation: Performing Lab:[facility], [facility] Noto[address] [facility] Rusty CabreraIjfbXV[address] Dalton Arnold Notes/Report: NON-FASTING; NON-FASTING; NON-FASTING; NON-FASTING FASTING:YES FASTING: YES GLUCOSE 255 65-99 mg/dL Fasting reference interval value >125 mg/dL indicates that they may have diabetes and this should be confirmed with a follow-up test. For someone without known diabetes, a glucose UREA NITROGEN (BUN) 13 7-25 mg/dL CREATININE 0.66 0.70-1.35 mg/dL EGFR 104 > OR = 60 mL/min/1.73m2 BUN/CREATININE RATIO 20 6-22 (calc) SODIUM 136 135-146 mmol/L POTASSIUM 4.5 3.5-5.3 mmol/L CHLORIDE 99 98-110 mmol/L CARBON DIOXIDE 27 20-32 mmol/L CALCIUM 8.9 8.6-10.3 mg/dL PROTEIN, TOTAL 6.6 6.1-8.1 g/dL ALBUMIN 4.2 3.6-5.1 g/dL GLOBULIN 2.4 1.9-3.7 g/dL (calc) ALBUMIN/GLOBULIN RATIO 1.8 1.0-2.5 (calc) BILIRUBIN, TOTAL 1.0 0.2-1.2 mg/dL ALKALINE PHOSPHATASE 124 35-144 U/L AST 16 10-35 U/L ALT 18 9-46 U/L CBC (INCLUDES DIFF/PLT) (639 9) Reviewed date:01/06/2025 06:34:44 AM Interpretation: Performing Lab:[facility] [facility] [address] [facility].comteJefferson [facility] ([facility]), [facility] HospitalBklpGM[address] Dalton Arnold Notes/Report: NON-FASTING; NON-FASTING; NON-FASTING; NON-FASTING FASTING:YES FASTING: YES WHITE BLOOD CELL COUNT 10.0 3.8-10.8 Thousand/ uL RED BLOOD CELL COUNT 5.26 4.20-5.80 Million/uL HEMOGLOBIN 13.8 13.2-17.1 g/dL HEMATOCRIT 43.4 38.5-50.0 % MCV 82.5 80.0-100.0 fL MCH 26.2 27.0-33.0 pg MCHC 31.8 32.0-36.0 g/dL For adults, a slight decrease in the calculated MCHC value (in the range of 30 to 32 g/dL) is most likely not clinically significant; however, it should be interpreted with caution in correlation with other red cell parameters and the patient's clinical condition. RDW 15.4 11.0-15.0 % PLATELET COUNT 199 140-400 Thousand/uL MPV 11.6 7.5-12.5 fL ABSOLUTE NEUTROPHILS [phone] cells/uL ABSOLUTE LYMPHOCYTES 2310 850-3900 cells/uL ABSOLUTE MONOCYTES 600 200-950 cells/uL ABSOLUTE EOSINOPHILS 210 15-500 cells/uL ABSOLUTE BASOPHILS 70 0-200 cells/uL NEUTROPHILS 68.1 LYMPHOCYTES 23.1 MONOCYTES 6.0 EOSINOPHILS 2.1 BASOPHILS 0.7 HEMOGLOBIN A1c (496) Reviewed date:08/23/2024 10:36:11 AM Interpretation: Performing Lab:[facility] Vciq1289 [facility] NetworkJeff[facility]), [facility] HospitalMnubLJ[address] Dalton Arnold Notes/Report: NON-FASTING; NON-FASTING FASTING:NO FASTING: NO HEMOGLOBIN A1c 10.6 <5.7 % of total Hgb control. A1c targets should be individualized based on duration of diabetes, age, comorbid conditions, and other considerations. Currently, no consensus exists regarding use of hemoglobin A1c for diagnosis of diabetes for children. This test was performed on the Alex mandeep c503 platform. Effective 01/30/24, a change in test platforms from the Grimaldo Senior Professional Services Consultant to the Alex mandeep c503 may have shifted HbA1c results compared to historical results. Based on laboratory validation testing conducted at [facility], the Alex platform relative to the Grimaldo platform had an average increase in HbA1c value of < or = 0.3%. This difference is within accepted variability established by the National Glycohemoglobin Standardization Program. Note that not all individuals will have had a shift in their results and direct For someone without known diabetes, a hemoglobin A1c value of 6.5% or greater indicates that they may have diabetes and this should be confirmed with a follow-up test. For someone with known diabetes, a value <7% indicates that their diabetes is well controlled and a value greater than or equal to 7% indicates suboptimal comparisons between historical and current results for testing conducted on different platforms is not recommended. HEMOGLOBIN A1c (496) Reviewed date:01/06/2025 06:34:44 AM Interpretation: Performing Lab:[facility] Tnbc[address]87 [place].comteBMRW & Associates [facility], [employer] [id number] Dalton Arnold Notes/Report: NON-FASTING; NON-FASTING; NON-FASTING; NON-FASTING FASTING:YES FASTING: YES HEMOGLOBIN A1c 10.3 <5.7 % of total Hgb For someone without known diabetes, a hemoglobin A1c value of 6.5% or greater indicates that they may have diabetes and this should be confirmed with a follow-up test. For someone with known diabetes, a value <7% indicates that their diabetes is well controlled and a value greater than or equal to 7% indicates suboptimal control. A1c targets should be individualized based on duration of diabetes, age, comorbid conditions, and other considerations. Currently, no consensus exists regarding use of hemoglobin A1c for diagnosis of diabetes for children. HEMOGLOBIN A1c (496) Reviewed date:05/18/2025 10:43:11 AM Interpretation: Performing Lab:[facility] [id number] [address]tel [facility], [employer] LearningJgxqNE[address] Dalton Arnold Notes/Report: NON-FASTING; NON-FASTING; NON-FASTING; NON-FASTING FASTING:YES FASTING: YES HEMOGLOBIN A1c 8.5 <5.7 % For someone without known diabetes, a hemoglobin A1c value of 6.5% or greater indicates that they may have diabetes and this should be confirmed with a follow-up test. For someone with known diabetes, a value <7% indicates that their diabetes is well controlled and a value greater than or equal to 7% indicates suboptimal control. A1c targets should be individualized based on duration of diabetes, age, comorbid conditions, and other considerations. Currently, no consensus exists regarding use of hemoglobin A1c for diagnosis of diabetes for children. CBC (INCLUDES DIFF/PLT) (639 9) Reviewed date:05/18/2025 10:43:11 AM Interpretation: Performing Lab:[facility] [address], OpDemandLulvXH[address] Dalton Arnold Notes/Report: NON-FASTING; NON-FASTING; NON-FASTING; NON-FASTING FASTING:YES FASTING: YES WHITE BLOOD CELL COUNT 8.7 3.8-10.8 Thousand/ uL RED BLOOD CELL COUNT 5.53 4.20-5.80 Million/uL HEMOGLOBIN 15.0 13.2-17.1 g/dL HEMATOCRIT 47.6 38.5-50.0 % MCV 86.1 80.0-100.0 fL MCH 27.1 27.0-33.0 pg MCHC 31.5 32.0-36.0 g/dL For adults, a slight decrease in the calculated MCHC value (in the range of 30 to 32 g/dL) is most likely not clinically significant; however, it should be interpreted with caution in correlation with other red cell parameters and the patient's clinical condition. RDW 15.1 11.0-15.0 % PLATELET COUNT 175 140-400 Thousand/uL MPV 11.2 7.5-12.5 fL ABSOLUTE NEUTROPHILS 5942 7312-2140 cells/uL ABSOLUTE LYMPHOCYTES 2045 850-3900 cells/uL ABSOLUTE MONOCYTES 444 200-950 cells/uL ABSOLUTE EOSINOPHILS 183 15-500 cells/uL ABSOLUTE BASOPHILS 87 0-200 cells/uL NEUTROPHILS 68.3 LYMPHOCYTES 23.5 MONOCYTES 5.1 EOSINOPHILS 2.1 BASOPHILS 1.0 BASIC METABOLIC PANEL ([id number] ) Reviewed date:08/23/2024 10:36:11 AM Interpretation: Performing Lab:[facility] [address], OpDemandMlfpII[address] Dalton Arnold Notes/Report: NON-FASTING; NON-FASTING FASTING:NO FASTING: NO GLUCOSE 212 65-139 mg/dL Non-fasting reference interval UREA NITROGEN (BUN) 10 7-25 mg/dL CREATININE 0.73 0.70-1.35 mg/dL EGFR 101 > OR = 60 mL/min/1.73m2 BUN/CREATININE RATIO SEE NOTE: 6-22 (calc) reference range. Not Reported: BUN and Creatinine are within SODIUM 137 135-146 mmol/L POTASSIUM 4.7 3.5-5.3 mmol/L CHLORIDE 101 98-110 mmol/L CARBON DIOXIDE 30 20-32 mmol/L CALCIUM 9.4 8.6-10.3 mg/dL COMPREHENSIVE METABOLIC PANE L ([id number]) Reviewed date:05/18/2025 10:43:11 AM Interpretation: Performing Lab:[facility], [address], RPostKiucDW[address] Dalton Arnold Notes/Report: NON-FASTING; NON-FASTING; NON-FASTING; NON-FASTING FASTING:YES FASTING: YES GLUCOSE 189 65-99 mg/dL Fasting reference interval For someone without known diabetes, a glucose value >125 mg/dL indicates that they may have diabetes and this should be confirmed with a follow-up test. UREA NITROGEN (BUN) 14 7-25 mg/dL CREATININE 0.75 0.70-1.35 mg/dL EGFR 100 > OR = 60 mL/min/1.73m2 BUN/CREATININE RATIO SEE NOTE: 6-22 (calc) Not Reported: BUN and Creatinine are within reference range. SODIUM 136 135-146 mmol/L POTASSIUM 4.3 3.5-5.3 mmol/L CHLORIDE 99 98-110 mmol/L CARBON DIOXIDE 30 20-32 mmol/L CALCIUM 9.2 8.6-10.3 mg/dL PROTEIN, TOTAL 7.0 6.1-8.1 g/dL ALBUMIN 4.6 3.6-5.1 g/dL GLOBULIN 2.4 1.9-3.7 g/dL (calc) ALBUMIN/GLOBULIN RATIO 1.9 1.0-2.5 (calc) BILIRUBIN, TOTAL 0.7 0.2-1.2 mg/dL ALKALINE PHOSPHATASE 123 35-144 U/L AST 18 10-35 U/L ALT 24 9-46 U/L COMPREHENSIVE METABOLIC PANE L ([id number]) Reviewed date:09/24/2024 08:17:01 AM Interpretation: Performing Lab:[facility], [facility] Budq[address]13 [address] Dianxinvd, RPostUhmjMY[address] Dalton Arnold Notes/Report: NON-FASTING GLUCOSE 172 65-99 mg/dL Fasting reference interval For someone without known diabetes, a glucose value >125 mg/dL indicates that they may have diabetes and this should be confirmed with a follow-up test. UREA NITROGEN (BUN) 9 7-25 mg/dL CREATININE 0.74 0.70-1.35 mg/dL EGFR 101 > OR = 60 mL/min/1.73m2 BUN/CREATININE RATIO SEE NOTE: 6-22 (calc) Not Reported: BUN and Creatinine are within reference range. SODIUM 139 135-146 mmol/L POTASSIUM 4.3 3.5-5.3 mmol/L CHLORIDE 102 98-110 mmol/L CARBON DIOXIDE 30 20-32 mmol/L CALCIUM 9.2 8.6-10.3 mg/dL PROTEIN, TOTAL 7.0 6.1-8.1 g/dL ALBUMIN 4.3 3.6-5.1 g/dL GLOBULIN 2.7 1.9-3.7 g/dL (calc) ALBUMIN/GLOBULIN RATIO 1.6 1.0-2.5 (calc) BILIRUBIN, TOTAL 0.7 0.2-1.2 mg/dL ALKALINE PHOSPHATASE 140 35-144 U/L AST 14 10-35 U/L ALT 18 9-46 U/L LIPID PANEL, STANDARD ([id number]) Reviewed date:05/18/2025 10:43:10 AM Interpretation: Performing Lab:CB, [facility] [id number] [facility], [facility] HospitalBflcPO[address] Dalton Arnold Notes/Report: NON-FASTING; NON-FASTING; NON-FASTING; NON-FASTING FASTING:YES FASTING: YES CHOLESTEROL, TOTAL 122 <200 mg/dL HDL CHOLESTEROL 29 > OR = 40 mg/dL TRIGLYCERIDES 299 <150 mg/dL If a non-fasting specimen was collected, consider repeat triglyceride testing on a fasting specimen if clinically indicated. Bala et al. J. of Clin. Lipidol. 2015;9:129-169. LDL-CHOLESTEROL 62 Reference range: <100 Desirable range <100 mg/dL for primary prevention; <70 mg/dL for patients with CHD or diabetic patients with > or = 2 CHD risk factors. LDL-C is now calculated using the Landen-Dumont calculation, which is a validated novel method providing better accuracy than the Friedewald equation in the estimation of LDL-C. Landen RIVAS et al. JUANY. 2013;310(19): 2021-1899 (http://education.Zoomabet.Varaa.com/faq/KLX183) CHOL/HDLC RATIO 4.2 <5.0 (calc) NON HDL CHOLESTEROL 93 <130 mg/dL (calc) For patients with diabetes plus 1 major ASCVD risk factor, treating to a non-HDL-C goal of <100 mg/dL (LDL-C of <70 mg/dL) is considered a therapeutic option. Rapid Covid/Flu A-B Combo Reviewed date:10/14/2024 07:00:33 PM Interpretation: Performing Lab: Notes/Report: Rapid Covid positive Flu A neg Flu B neg Medications Medication SIG (Take, Route, Frequency, Duration) Notes Start Date End Date Status Pregabalin 100 MG 1 cap(s) orally 2 times a day; Duration: 30 days 07/29/2025 Active Isosorbide Mononitrate ER 60 MG 2 tab(s) orally once a day (in the morning); Duration: 90 days Active Tresiba 100 UNITS/ML INJECT 50 UNITS SUBCUTANEOUSLY EVERY EVENING KEEP IN REFRIGERATOR *Please review and pick correct strength-formulat ion from Cold Crate options. If intended option is not shown, discontinue and re-order from Quick Search* Active Fluticasone Propionate 50 MCG/ACT 1 spray(s) in each nostril once a day; Duration: 30 days 09/23/2024 Active BD PEN NEEDLE 32G SUBCUTANEOUS NEEDED FOR DIABETIC INJECTIONS; Duration: 33 DAYS *Please review for potential replacement for e-prescription and drug interaction check* Active Insulin Syringe 0.5 31G USE WITH INSULIN INJECTION; Duration: 33 DAYS *Please review and pick correct strength-formulat ion from Cold Crate options. If intended option is not shown, discontinue and re-order from Quick Search* Active Aspirin 81 MG 1 tab(s) orally once a day Active Losartan Potassium 25 MG 1 tab(s) orally once a day; Duration: 90 days Active traZODone HCl 50 MG 1/2 tab- 1 tab Orall y at bedtime; Duration: 30 days 05/05/2025 Active Atorvastatin Calcium 80 MG 1 tab(s) orally once a day; Duration: 90 days 02/24/2021 Active Unifine Pentips 32G X 4 MM USE FOUR TIMES DAILY; Duration: 25 Active Clopidogrel Bisulfate 75 MG 1 tab(s) orally once a day; Duration: 90 days Active Furosemide 20 MG 1 tab(s) orally once a day; Duration: 30 days 09/16/2024 Active ONE TOUCH ULTRA LANCETS DIRECTED TWICE DAILY; Duration: 90 DAYS *Please review for potential replacement for e-prescription and drug interaction check* Active Nitroglycerin 0.4 MG 1 tab(s) sublingual ly every 5 minutes; Duration: 30 days 08/22/2024 Active SOLIQUA 100/33 100 UNITS-33 MCG/ML INJECT 60 UNITS UNDER THE SKIN EVERY MORNING; Duration: 30 DAYS *Please review for potential replacement for e-prescription and drug interaction check* Active ONE TOUCH TEST STRIPS DIRECTED FOR DIABETIC TESTING TEST BID; Duration: 30 DAYS diagnosis: E11.9 and Z79.4 *Please review for potential replacement for e-prescription and drug interaction check* 02/27/2012 Active Bisoprolol Fumarate 5 MG 1 tab(s) orally once a day; Duration: 90 days Active ALL DAY ALLERGY (CETIRIZINE) 10 MG 1 TAB(S) ORALLY ONCE A DAY; Duration: 30 DAYS *Please review for potential replacement for e-prescription and drug interaction check* 09/23/2024 Active Gemfibrozil 600 MG TAKE 1 TABLET BY MOUTH AT BEDTIME; Duration: 90 Active NovoLIN 70/30 (70-30) 100 UNIT/ML inject 14 units subcutaneously with every meal Active Omeprazole 40 MG TAKE 1 CAPSULE BY MOUTH ONCE DAILY; Duration: 30 Active Immunizations Vaccine Route Administration Date Status Comme [facility] Prevnar PCV-20 (Pneumococcal conjugate 20) IM Intramuscular 10/11/2022 Administered Pneumococcal Vaccine IM Intramuscular 10/23/2011 Administe red Influenza (Fluzone)--Medicare only IM Intramuscular 10/23/2011 Administered Influenza (Fluzone)--Medicare only IM Intramuscular 08/29/2012 Administered Influenza (Fluzone)--Medicare only IM Intramuscular 08/27/2013 Administered Influenza (Fluzone)--Medicare only IM Intramuscular 09/15/2015 Administered Influenza (Fluzone)--Medicare only IM Intramuscular 09/18/2016 Administered Influenza (Fluzone)--Medicare only IM Intramuscular 09/24/2017 Administered Influenza (Fluzone)--Medicare only IM Intramuscular 11/11/2018 Administered Fluzone High Dose IM Intramuscular 08/20/2024 Administered FLUZONE 6MO - OLDER IM Intramuscular 08/13/2019 Administer ed FLUZONE 6MO - OLDER IM Intramuscular 08/20/2023 Administer ed Flublok IM Intramuscular 08/09/2020 Administered Flublok IM Intramuscular 09/20/2021 Administered Flublok IM Intramuscular 09/13/2022 Administered Covid Andrew Unknown 02/02/2021 Administered Covid Andrew Unknown 09/29/2021 Administered Covid Andrew Unknown 09/29/2021 Administered Boostrix Unknown 08/11/2020 Administered Arexvy IM Intramuscular 10/01/2023 Administered Social History Tobacco Use: Social History Observation Description Date Details (start date - stop date) Current Smoker NA - NA Smoking: Question Answer Notes Are you a: current smoker How often do you smoke cigarettes? every day How many cigarettes a day do you smoke? 11-20 Problems Problem Type SNOMED Code ICD Code Onset Dates Problem Status W/U Status Risk Notes Problem Diabetic peripheral neuropathy associated with type 2 diabetes mellitus (9957117870081) Type 2 diabetes mellitus with diabetic neuropathy, unspecified (E11.40) Active confirmed Problem Hyperglycemia due to type 2 diabetes mellitus (120550333769997) Type 2 diabetes mellitus with hyperglycemia (E11.65) Active confirmed Problem Primary insomnia (7721303) Primary insomnia (F51.01) Active confirmed Problem Panlobular emphysema (0060112) Panlobular emphysema (J43.1) Active confirmed Problem Lower urinary tract symptoms due to benign prostatic hypertrophy (22727976735478) Enlarged prostate with lower urinary tract symptoms (N40.1) Active confirmed Problem Nicotine dependence (66899661) Personal history of nicotine dependence (Z87.891) Active confirmed Problem Morbid obesity (422035102) Morbid obesity (E66.01) Active confirmed Problem Neuropathy (436452750) Neuropathy (G62.9) Active confirmed Problem Essential hypertension (81147457) Essential hypertension (I10) Active confirmed Problem Hyperlipidemia (19982593) Hyperlipemia, idiopathic familial (E78.5) Active confirmed Problem Body mass index 30.00 to 34.99 (620197406417910) BMI 34.0-34.9,adult (Z68.34) Active confirmed Problem Long-term current use of insulin (914734931) detention (current) use of insulin (Z79.4) Active confirmed Problem Atherosclerosis of coronary artery without angina pectoris (247563853100820) Atherosclerosis of [place] coronary artery of [place] heart without angina pectoris (I25.10) Active confirmed Problem Long-term current use of insulin (762809249) terminal supervisor current use of insulin (Z79.4) Active confirmed Problem Stable angina due to coronary arteriosclerosis (disorder) (14737008054509997) Atherosclerosis of [place] coronary artery of [place] heart with stable angina pectoris (I25.118) Active confirmed Problem Polyneuropathy due to type 2 diabetes mellitus (809075461) Type 2 diabetes mellitus with polyneuropathy (E11.42) Active confirmed Problem Episodic migraine (482019101537418) Episodic migraine (G43.909) Active confirmed Vital Signs Heart Rate 80 /min 05/05/2025 Temperature 97.5 degrees Fahrenheit 05/05/2025 Oximetry 99 09/23/2024 Blood pressure diastolic 76 mm Hg 05/05/2025 Height 5 ft 8 in in 05/05/2025 Blood pressure systolic 122 mm Hg 05/05/2025 Weight 227.4 lbs 05/05/2025 BMI 34.57 kg/m2 05/05/2025 Encounters Encounter Location Date Provider Diagnosis [facility] [address] [facility] [address] [place] [address] 12/25/2024 Sarah McNees [facility] [address] [place] [address] 02/28/2025 Provider Migration Type 2 diabetes mellitus with diabetic neuropathy, unspecified E11.40 and Type 2 diabetes mellitus with polyneuropathy E11.42 [facility] [address] [facility] [address] [place], [place] [address] 05/12/2025 Sarah McNees [facility] [address] [facility] [address] [place], [place] [address] 08/12/2024 Sarah McNees Sebaceous cyst L72.3 and Local infection of the skin and subcutaneous tissue, unspecified L08.9 [facility] [address] [facility] [address] [place], [place] [address] 08/20/2024 Anders Hernandez Type 2 diabetes mellitus with diabetic neuropathy, unspecified E11.40 ; Essential hypertension I10 ; Sebaceous cyst L72.3 and Immunization(s) administered Z23 [facility] [address] [facility] [address] [place], [place] [address] 08/26/2024 Sarah McDianne [facility] [address] [facility] [address] [place] [address] 09/16/2024 Sarah McDianne Peripheral edema R60 .0 and Daily headache R51.9 [facility] [address] [facility] [address] [place] [address] 09/23/2024 Sarah McNees Peripheral edema R60 .0 and Daily headache R51.9 [facility] [address] [facility] [address] [place] [address] 10/14/2024 Sarah McNees Cough R05.9 and COVID-19 U07.1 [facility] [address] [facility] [address] [place] [address] 11/18/2024 Sandi León Episodic migraine G43.909 [facility] [address] [facility] [address] [place] [address] 12/18/2024 Sarah Welch Encounter for Medica re annual wellness exam Z00.00 ; Hyperlipemia, idiopathic familial E78.5 ; Type 2 diabetes mellitus with diabetic neuropathy, unspecified E11.40 ; terminal supervisor current use of insulin Z79.4 ; Personal history of nicotine dependence Z87.891 ; BMI 34.0-34.9,adult Z68.34 ; Atherosclerosis of [place] coronary artery of [place] heart without angina pectoris I25.10 ; Medical non-compliance Z91.199 and Essential hypertension I10 [facility] [address] [facility] [address] [place] [address] 01/22/2025 Sarah Welch Type 2 diabetes mellitus with polyneuropathy E11.42 [facility] [address] [facility] [address] [place] [address] 02/17/2025 Sarah Welch Type 2 diabetes mellitus with diabetic neuropathy, unspecified E11.40 [facility] [address] [place] [address] 05/05/2025 Sarah McNees Hyperlipemia, idiopathic familial E78.5 ; Type 2 diabetes mellitus with diabetic neuropathy, unspecified E11.40 ; detention current use of insulin Z79.4 ; Personal history of nicotine dependence Z87.891 ; Atherosclerosis of [place] coronary artery of [place] heart without angina pectoris I25.10 ; Medical non-compliance Z91.199 ; Essential hypertension I10 and Primary insomnia F51.01 [facility] [address] [place] [address] 08/22/2024 Anders Besson [facility] [address] [place] [address] 08/23/2024 Anders Besson [facility] [address] [place] [address] 08/23/2024 Anders Besson [facility] [address] [place] [address] 08/26/2024 Sarah McNees [facility] [address] [place] [address] 12/19/2024 Sarah McNees [facility] [address] [place] [address] 12/19/2024 Anders Besson [facility] [address] [address] 01/06/2025 Anders Besson [facility] [address] [place] [address] 01/06/2025 Sarah McNees [facility] [address] [place] [address] 01/24/2025 Sarah McNees Type 2 diabetes mellitus with polyneuropathy E11.42 ; Hyperlipidemia, unspecified hyperlipidemia type E78.5 and Hoarseness of voice R49.0 [facility] [address] [place] [address] 02/27/2025 Sarah McNees Type 2 diabetes mellitus with polyneuropathy E11.42 [facility] [address] [address] 04/28/2025 Sarah Welch Type 2 diabetes mellitus with polyneuropathy E11.42 [facility] MARIANO [address] [place] [address] 05/18/2025 [facility] [address] [address] 06/09/2025 Sarah MunirNeroz Type 2 diabetes mellitus with polyneuropathy E11.42 [facility] [address] [address] 07/29/2025 Anders Hernandez Type 2 diabetes mellitus with polyneuropathy E11.42 Assessments Encounter Date Diagnosis (ICD Code) Assessment Notes Treatment Notes Treatment Clinical Notes Section Notes 08/12/2024 Local infection of the skin and subcutaneous tissue, unspecified (ICD-10 - L08.9) 08/12/2024 Sebaceous cyst (ICD-10 - L72.3) Infected sebaceous cyst. Warm compresses TID. Clindamycin as below. Discussed s/s that warrant urgent FU. 08/20/2024 Type 2 diabetes mellitus with diabetic neuropathy, unspecified (ICD-10 - E11.40) Patient states his diabetes control is better. Will check A1c and other labs today. Close follow-up as scheduled. I am not as optimistic about his sugar becoming lower as he was really never been able to demonstrate lowered A1c with diet and exercise changes in his weights the same. 09/16/2024 Daily headache (ICD-10 - R51.9) Trial of nurtec given. Discussed hydration and need for regular, balanced meals, outdoor activities/exerci se and trigger (sunlight) etc - avoidance. Will re-evaluate at FU next week. Sooner return precautions discussed 09/16/2024 Peripheral edema (ICD-10 - R60.0) Echo 07/19 mild , EF 60%. 08/19 LHC with SHLOMO circ extending to 1st obtuse and RCA. Likely related to recent hospitalization and IVF's. Start lasix prn. Take 2 tabs today, then 1 daily PRN. RTC in 1 week to re-evaluate 09/23/2024 Daily headache (ICD-10 - R51.9) Seems to be more sinusitis related today, treated as below. Supportive care and return precautions discussed. 09/23/2024 Peripheral edema (ICD-10 - R60.0) Significant improvement. CMP today to confirm stability. 10/14/2024 COVID-19 (ICD-10 - U07.1) Discussed importance of pulmonary toilet and hydration. OTC medications for symptom management reviewed. Increase oral fluid intake. Diabetic diet. Monitor FSBS. Discussed reasons to seek care in clinic or ED (worsening cough, shortness of breath, high fever not responding to treatment, inability to tolerate typical PO intake). Also recommended self-quarantine at home per CDC guidelines. 10/14/2024 Cough (ICD-10 - R05.9) 11/18/2024 Episodic migraine (ICD-10 - G43.909) Samples of Ubrelvy 100 mg provided, administration directions reviewed. Encouraged rest, hydration, cool compresses. If symptoms do not improve in the next several days encouraged him to follow-up for additional evaluation. 08/20/2024 Essential hypertension (ICD-10 - I10) Blood pressure control is good. On DOMI inhibitor. No changes in plan 12/18/2024 Hyperlipemia, idiopathic familial (ICD-10 - E78.5) Tolerating statin well. Will check fasting lipid panel and treat as indicated 12/18/2024 Encounter for Medicare annual wellness exam (ICD-10 - Z00.00) Colonoscopy 2017- due for repeat, on hold due to recent cardiac stents and DAPT Immunizations UTD Labs-due for fasting labs, will return to clinic when fasting 01/22/2025 Type 2 diabetes mellitus with polyneuropathy (ICD-10 - E11.42) Poor control due to noncompliance with diet. Discussed diabetic diet, need to tirtrate tresiba every 4-5 days by 3-5 units based on reading to goal of fasting FSBS 100-150. Increase lyrica as listed above. CSA UTD and on chart. Chauncey report reviewed and is appropriate - discussed ongoing use of controlled medication and safety associated with these medicationsRTC in 3 weeks to re-evaluate 01/24/2025 Type 2 diabetes mellitus with polyneuropathy (ICD-10 - E11.42) 02/17/2025 Type 2 diabetes mellitus with diabetic neuropathy, unspecified (ICD-10 - E11.40) Poor control due to noncompliance with diet and likely insulin at times. Discussed importance of diabetic diet. Increase Tresiba as above. RTC in 3 months for fasting labs 02/27/2025 Type 2 diabetes mellitus with polyneuropathy (ICD-10 - E11.42) 02/28/2025 Type 2 diabetes mellitus with diabetic neuropathy, unspecified (ICD-10 - E11.40) 02/28/2025 Type 2 diabetes mellitus with polyneuropathy (ICD-10 - E11.42) 04/28/2025 Type 2 diabetes mellitus with polyneuropathy (ICD-10 - E11.42) 05/05/2025 Type 2 diabetes mellitus with diabetic neuropathy, unspecified (ICD-10 - E11.40) Reports good control on the one FSBS check in the last few months. Diabetic diet Recommend eye exam Supportive footwear 05/05/2025 Hyperlipemia, idiopathic familial (ICD-10 - E78.5) Tolerating statin well. Will check fasting lipid panel and treat as indicated 06/09/2025 Type 2 diabetes mellitus with polyneuropathy (ICD-10 - E11.42) 07/29/2025 Type 2 diabetes mellitus with polyneuropathy (ICD-10 - E11.42) 05/05/2025 detention current use of insulin (ICD-10 - Z79.4) 01/24/2025 Hyperlipidemia, unspecified hyperlipidemia type (ICD-10 - E78.5) 12/18/2024 Type 2 diabetes mellitus with diabetic neuropathy, unspecified (ICD-10 - E11.40) Poor glucose control due to noncompliance with diet. Stressed importance of glucose control, diabetic diet, supportive footwear, yearly eye exams and monitoring feet daily for lesions. Will check a1c and treat as indicated. Would benefit from GLP-1 unfortunately too expensive with his insurance paln. CSA utd and on chart. Chauncey report reviewed and is appropriate - discussed ongoing use of controlled medication and safety associated with these medications 08/20/2024 Sebaceous cyst (ICD-10 - L72.3) Discussed pathophysiology of sebaceous cyst. No indication for removal at this point. Discussed warm compresses, expressing drainage if needed, discussed criteria for surgical referral or to come back if he wishes this reevaluated 01/24/2025 Hoarseness of voice (ICD-10 - R49.0) 08/20/2024 Immunization(s) administered (ICD-10 - Z23) 05/05/2025 Personal history of nicotine dependence (ICD-10 - Z87.891) Smoking cessation counseing provided. CT chest UTD 12/18/2024 terminal supervisor current use of insulin (ICD-10 - Z79.4) 05/05/2025 Atherosclerosis of [place] coronary artery of [place] heart without angina pectoris (ICD-10 - I25.10) Stable, no acute angina. Minimize risk factors. Stop smoking and optimize b/p, glucose and LDL control 12/18/2024 Personal history of nicotine dependence (ICD-10 - Z87.891) Smoking cessation counseing provided. CT chest ordered 05/05/2025 Medical non-compliance (ICD-10 - Z91.199) Complicates all aspects of care. 12/18/2024 BMI 34.0-34.9,adult (ICD-10 - Z68.34) Recommend diabetic diet, weight loss. Will cont to monitor at FU 12/18/2024 Atherosclerosis of [place] coronary artery of [place] heart without angina pectoris (ICD-10 - I25.10) Stable, no acute angina. Minimize risk factors. Stop smoking and optimize b/p, glucose and LDL control 05/05/2025 Essential hypertension (ICD-10 - I10) Blood pressure at goal 12/18/2024 Medical non-compliance (ICD-10 - Z91.199) Complicates all aspects of care. 05/05/2025 Primary insomnia (ICD-10 - F51.01) Start trazodone 1/2 tab QHS x 1 week, then increase to 1 tab at bedtime. Discussed MOA and SE profile, and reasons to FU 12/18/2024 Essential hypertension (ICD-10 - I10) Blood pressure at goal 08/26/2024 Other Sent directly t o general surgery for i&D 11/18/2024 Other Plan Of Treatment Pending Test Test Name Order Date Cardiac GXT 01/23/2020 Physical Therapy 03/09/2015 Physical Therapy 12/16/2010 C-Peptide Level 02/15/2011 H-CBC with AUTO DIFF 06/25/2014 H-CBC with AUTO DIFF 10/29/2014 H-CMP 06/25/2014 H-LIPID PANEL 06/25/2014 H-LIPID PANEL 10/29/2014 H-HGBA1C 10/29/2014 H-HGBA1C 06/25/2014 H-PSA SCREEN 06/25/2014 C-CMP 12/10/2020 C-LIPID PANEL 02/15/2011 C-TSH 01/23/2020 C-HGBA1C 01/03/2010 C-HGBA1C 02/15/2011 C-METHYLMALONIC ACID 01/23/2020 Urine Culture, Routine 12/10/2020 Urinalysis, Routine 12/10/2020 12 PANEL DRUG SCREEN, URINE 02/18/2018 Future Test Test Name Order Date C-CMP 04/03/2019 C-LIPID PANEL 04/03/2019 C-CPK 04/03/2019 C-HGBA1C 04/03/2019 Next Appt Details Provider Name:Sarah Guzman, 08/13/2025 09:15:00 AM, [address], [place], [address], Insurance Providers Payer Name Payer Address Payer Phone Subscriber Number Group Number Insured Name Patient Relationship to Insured Coverage Start Date Coverage End Date [employer] DUAL [address] [address] [place] [address] [id number] Annie Reina Self - patient is the insured Medications Administered Medication Instructions Date of Administration Dosage Notes Ceftriaxone 500 12/22/2014 500 mg Dexamethasone 4mg Injection 10/14/2024 4 mg Medical (General) History Medical History History ICD Code IDDM Hypertension Hyperlipidemia smoker 2 ppd Colonoscopy with serrated adenoma 04/2017 low-dose CT scan chest April 2020 with BI-RADS 1, repeat one year - Repeated 11/16-BI-RADS 1-repeat 1 year kidney stone AAA screening -11/16 Surgical History Surgery Date(Month/Year) Knee surgery-lt knee 2001, 2003 Cardiac stent 11/08/2021 2 stents placed 07/2024 cyst removal x 2 07/2024 Hospitalization History Reason Date(Month/Year) Heart Issues 2010
[2025-08-06 09:23] LABS: Hematocrit 41.0 % (42.0-52.0); Hemoglobin 13.7 g/dL (14.1-18.0); Immature Granulocytes % 1.5 %; Mean Corpuscular HGB Conc 33.4 g/dL (31.8-35.4); Mean Corpuscular Hemoglobin 27.7 pg (27.0-31.2); Mean Corpuscular Volume 83.0 fl (80-94); Nucleated Red Blood Cells % 0 %; Platelet Count 158 K/mm3 (142-424); Red Blood Count 4.94 M/mm3 (4.60-6.20); Red Cell Distribution Width-SD 46.5 fL; White Blood Count 5.9 K/mm3 (4.8-10.8)
[2025-08-06 10:05] LABS: Free T4 (Free Thyroxine) 0.97 ng/dl (0.78-2.19)
[2025-08-06 13:22] LABS: Albumin Level 4.2 g/dl (3.5-5.0); Chloride 101 mmol/L (98-107); Potassium 4.1 mmoL/L (3.5-5.1); Sodium 138 mmol/L (136-145)
[2025-08-06 13:24] LABS: Bilirubin,Unconjugated 0.7 mg/dL (0.0-1.1); Blood Urea Nitrogen 10 mg/dl (9-20); Creatinine,Serum 0.60 mg/dl (0.66-1.25); Estimated Glomerular Filt Rate 135 ml/min (>60); GFR (African American) 163 ML/MIN (>60)
[2025-08-06 13:25] LABS: Alanine Aminotransferase 24 U/L (12-78); Alkaline Phosphatase 106 U/L (38-126); Anion Gap 9.1 mEq/L (5-15); Aspartate Amino Transferase 27 U/L (17-59); Bilirubin,Direct 0.2 mg/dl (0.0-0.4); Bilirubin,Indirect 0.7 mg/dL (0.0-0.9); Bilirubin,Total 0.9 mg/dl (0.2-1.3); Calcium 8.9 mg/dl (8.4-10.2); Carbon Dioxide 32 mmol/L (22.0-30.0); Cholesterol 86 mg/dl (140-200); Glucose 185 mg/dl (74-100); HDL Cholesterol 23 mg/dl (40-60); Magnesium 1.6 mg/dl (1.6-2.3); Total Protein,Serum 6.7 g/dl (6.3-8.2); Triglycerides 155 mg/dl (30-150)
[2025-08-06 13:56] LABS: Thyroid Stimulating Hormone 4.64 uIU/mL (0.465-4.68)
== END 2025-08-06 23:59 | disposition home or self-care (01) ==
LOC: LAB 08:59
PROVIDERS: PCP Internal Medicine Adolescent Medicine; Visit Provider Nurse Practitioner
DX: Z01.810 Encounter for preprocedural cardiovascular examination (principal); I25.10 Atherosclerotic heart disease of native coronary artery without angina pectoris; I10 Essential (primary) hypertension; E78.5 Hyperlipidemia, unspecified; R94.31 Abnormal electrocardiogram [ECG] [EKG]
CPT/HCPCS: 36415; 80048; 80061; 80076; 83735; 84439; 84443; 85025

== ENCOUNTER 2025-09-03 06:13 | Outpatient (CLI) | payer MEDICARE, MEDICAID, SELFPAY ==
--- NOTE | 2025-09-03 | CA_ITS ---
APPROVED REPORT Exam: Pharmacologic Technologist: Lisa Sotelo Ht: 5 ft 8 in Wt: 226 lbs BSA: 2.15 m2 HR: 66 bpm BP: 162/71 mmHg Rhythm: SR Medical History Cardiac Risk Factors: HTN, Diabetes (non-insulin), FHX of CAD, Smoking Stress Test Details HR Resting HR: 66 bpm Max Heart Rate (APMHR): 154.891144 bpm Target HR (85% APMHR): 130.627658 bpm Recovery HR: 77 bpm BP Resting BP: 162.0/71.0 mmHg Recovery BP: 130.0/70.0 mmHg ECG Resting ECG: SR Stress ECG Conclusion During lexiscan pt experinced no symptoms. No arrhythmias noted. Less than .5mm upsloping ST segment changes. Nondiagnsotic ECG/lexiscan. Electronically signed by : Kelin Messer MD 09/07/2025 02:00:57
--- NOTE | 2025-09-03 06:30 | NM_ITS ---
APPROVED REPORT Exam: Nuclear Stress Test Indication: cp..soa..fatigue Patient Location: Outpatient Stress Tech: Lisa TROTTER Tech:Blessing CoughlinCHASE RT(R)(N) Ht: 5 ft 8 in Wt: 226 lbs HR: 68 bpm BP: 162/71 mmHg BSA: 2.15 m2 TID: 1.17 BMI: 34.3 History: chest pain, dyspnea, fatigue Procedure: Patient received 0.4 mg of intravenous Lexiscan, resting heart rate 68 bpm, resting blood pressure 162/71 mmHg, with Lexiscan maximum heart rate achieved was 81 bpm which is 85 % of the maximum predicted heart rate and blood pressure was 144/60 mmHg. With Lexiscan, patient denied any complaint of chest pain. Cardiac Stress and Resting SPECT Images: Cardiac Stress and Resting SPECT images were obtained using technetium 99m Myoview 30.1 mCi stress and 10.21 mCi at rest. Resting and stress imaging in supine and prone positions demonstrate a large sized, severe, predominantly fixed perfusion defect in the inferior LV wall from the base and extending towards the inferoapical LV wall.There is a small region of reversibility towards the distal inferior LV wall. Gated imaging demonstrates low-normal global LV systolic function. LVEF is calculated at 51%. Conclusion: Large sized, severe, predominantly fixed perfusion defect in the inferior LV wall from the base and extending towards the inferoapical LV wall.There is a small region of reversibility towards the distal inferior LV wall. Findings are suggestive of partial reversible ischemia. Gated imaging demonstrates low-normal global LV systolic function. LVEF is calculated at 51%. Electronically signed by : Kelin Messer MD 09/03/2025 13:21:02
[2025-09-03 08:10] VITALS: BP 162/71; PULSE 66; RESP 14
--- NOTE | 2025-09-03 08:45 | CA_ITS ---
APPROVED REPORT EXAM: Comprehensive 2D, Doppler, and color-flow Echocardiogram Rate Quoting Operator: Helena Bowers RT(R) Ht: 5 ft 8 in Wt: 226lbs BSA: 2.15 BP: 144/80 mmHg Indications: dyspnea, CAD, mild 2D Dimensions Left Atrium 4.13 cm M: 3.0 - 4.0 LA Volume 22.00 mL LVOT 1.97 cm (M/F) 1.5-2.5 LA Volume Index 10.23 mL/m2 (M/F) 16-34 EF AP2 32.2 % GL Strain -14.7 % M-Mode Dimensions RVDd 2.43 cm (0.9-2.6) LVDd 5.00 cm (3.5-5.7) Ao Diam 2.62 cm (2.0-3.7) LVDs 3.68 cm (3.5-5.7) IVSd 1.11 cm (0.6-1.1) PWd 1.14 cm (0.6-1.1) EF (Teich) 51.40% FS 26.40% EDV (Teich) 118.20 mL ESV (Teich) 57.40 mL LV Diastology E Decel Time 192 (160-240 msec) E/A Ratio 1.1 MED E' 6.2 (>= 7 cm/sec) E'/MED E' Ratio 18.10 (<= 14) LAT E' 9.9 (>= 10 cm/sec) E/LAT E' Ratio 11.33 (<= 14) Aortic Valve LVOT Max 123.0 (70-110 cm/s) GRABIEL Index 0.73 cm2/m2 LVOT VTI 28.89 cm AoV Peak Liam. 233.0 (50-130 cm/s) AO Mean GR. 10.70 (<5 mmHg) AO VTI 55.6 (18-25 cm) GRABIEL (VTI) 1.58 (2.5-4.5 cm2) Mitral Valve MV E Max Liam. 112.0 (40-130 cm/s) MV A Velocity 101.0 (40-130 cm/s) E/A Ratio 1.11 MV Decel. Time 192 (160-240 ms) Left Ventricle The left ventricle is normal size. Left ventricular systolic function is normal. The left ventricular ejection fraction is within the normal range. There is increased left ventricular wall thickness. There is normal LV segmental wall motion. Transmitral Doppler flow pattern suggests impaired LV relaxation. LVEF is 55% Right Ventricle The right ventricle is normal size. The right ventricular systolic function is normal. Atria The left atrium is mildly dilated. The right atrium size is normal. There is no color Doppler evidence of interatrial shunt. Aortic Valve The aortic valve is mildly thickened. Nodular calcification is present. Mild aortic stenosis is present. GRABIEL by continuity equation is 1.6 cm2. Peak velocity 2.3 m/s. Mean AV gradient is 11 mmHg. Max AV gradient is 21 mmHg. Trace aortic regurgitation is present. Mitral Valve The mitral valve is normal in structure. No evidence of mitral valve stenosis. Mild mitral regurgitation is present. Tricuspid Valve The tricuspid valve leaflets are thin and pliable. Mild tricuspid regurgitation. RVSP is 20-25 mmHg. Pulmonic Valve The pulmonary valve is grossly normal in structure. Trace pulmonic valve regurgitation is present. Great Vessels The aortic root is normal in size. IVC is normal in size and collapses >50% with inspiration. Pericardium There is no pericardial effusion. Other Information Study Quality: Fair Conclusion Normal biventricular systolic function. Mild LA dilation. Mild (GRABIEL by continuity equation is 1.6 cm2. Peak velocity 2.3 m/s. Mean AV gradient is 11 mmHg. Max AV gradient is 21 mmHg). Mild MR, mild TR. Electronically signed by : Kelin Messer MD 09/06/2025 22:33:27
[2025-09-03] MEDS: SODIUM CHLORIDE 0.9% 10ML SYR (RAD ONLY) 10 ML IV ×2 (09:13)
[2025-09-03] MEDS: ISOTOPE MYOVIEW (PER STUDY) 1 DOSE IV (09:13)
== END 2025-09-03 23:59 | disposition home or self-care (01) ==
LOC: RAD 06:15
PROVIDERS: PCP Internal Medicine Adolescent Medicine; Visit Provider Nurse Practitioner
DX: Z01.810 Encounter for preprocedural cardiovascular examination (principal); I08.3 Combined rheumatic disorders of mitral, aortic and tricuspid valves; I11.9 Hypertensive heart disease without heart failure; I25.10 Atherosclerotic heart disease of native coronary artery without angina pectoris; R94.31 Abnormal electrocardiogram [ECG] [EKG]; R94.39 Abnormal result of other cardiovascular function study
CPT/HCPCS: 78452; 93017; 93018; 93306; A9502; J2785

== ENCOUNTER 2025-09-29 07:33 | Day surgery (SDC) | payer MEDICARE, MEDICAID, SELFPAY ==
[2025-09-29] VITALS (14 sets, daily range): BP systolic 100–158; BP diastolic 43–88; PULSE 66–92; RESP 15–20; TEMP 36.3–37; O2SAT 93–100; BMI 33.9
--- NOTE | 2025-09-29 07:09 | IR_ITS ---
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 COMPLICATIONS NONE Estimated Blood Loss: LESS THAN 10 ML TECHNIQUE One percent lidocaine used to anesthetize the right anterior aspect of the wrist. The right radial artery was accessed via the Seldinger technique. A 6 Kisw[place]ili sheath was placed in the right radial artery. 2.5 mg of Verapamil, 800 mcg of nitroglycerin, 1mg Lidocaine and 5000 U Heparin were given through the arterial sheath. The JL3 catheter was also used to perform left heart catheterization, left ventriculogram and selective coronary angiogram. At the end the diagnostic angiogram therapeutic Was administered giving a therapeutic ACT and the guide catheter was placed in left coronary cusp followed by wire placed in the circumflex artery. Intravascular ultrasound probe was advanced and interrogation of the left main artery was performed. This demonstrated wide patency with an MLA greater than 10 mm???. Given there was no hemodynamic significance of the left main artery stenosis the apparatus was removed the sheath was removed and hemostasis was achieved and TR banding patient was transferred to the postop boarding in stable addition ANGIOGRAPHIC RESULTS The left main artery Has an ostial eccentric 40 to 50% stenosis which proved to have an MLA greater than 10 mm??? The left anterior descending artery Large-caliber vessel with a stent in the proximal to mid segment which is widely patent free of in-stent restenosis flex and proximal distal transitioning The circumflex artery Has a proximal 30% stenosis which extends into a large first obtuse marginal artery. The first obtuse marginal artery has a stent in the proximal to mid segment which is widely patent free of in-stent restenosis excellent proximal distal transitioning The right coronary artery Is dominant has a stent in the proximal to mid segment which has 30% in-stent restenosis The MANCIA ventriculogram reveals Normal 60% The left ventricular end-diastolic pressure 20 mmHg Left main artery has an MLA which exceeds 10 mm??? IMPRESSION Coronary artery disease as described above Normal ejection fraction Mildly elevated LVEDP PLAN 1. Medical management Electronically signed by : Mio Samuel MD 09/29/2025 10:38:57
[2025-09-29 07:57] LABS: Hematocrit 45.4 % (42.0-52.0); Hemoglobin 14.9 g/dL (14.1-18.0); Immature Granulocytes % 0.6 %; Mean Corpuscular HGB Conc 32.8 g/dL (31.8-35.4); Mean Corpuscular Hemoglobin 26.8 pg (27.0-31.2); Mean Corpuscular Volume 81.8 fl (80-94); Nucleated Red Blood Cells % 0 %; Platelet Count 209 K/mm3 (142-424); Red Blood Count 5.55 M/mm3 (4.60-6.20); Red Cell Distribution Width-SD 43.7 fL; White Blood Count 10.5 K/mm3 (4.8-10.8)
[2025-09-29 08:00] LABS: Chloride 96 mmol/L (98-107); Potassium 4.4 mmoL/L (3.5-5.1); Sodium 135 mmol/L (136-145)
[2025-09-29 08:03] LABS: Anion Gap 13.4 mEq/L (5-15); Blood Urea Nitrogen 13 mg/dl (9-20); Calcium 9.0 mg/dl (8.4-10.2); Carbon Dioxide 30 mmol/L (22.0-30.0); Creatinine Clearance Estimated 104 mL/min (50-200); Creatinine,Serum 0.90 mg/dl (0.66-1.25); Estimated Glomerular Filt Rate 84 ml/min (>60); GFR (African American) 102 ML/MIN (>60); Glucose 265 mg/dl (74-100)
[2025-09-29] MEDS: NITROGLYCERIN 800MCG/8ML SYR (CATH LAB) 800 MCG IA (08:45)
[2025-09-29] MEDS: LIDOCAINE 1% 10ML MDV 10 ML IJ (08:45)
[2025-09-29] MEDS: HEPARIN 1,000 UNITS/500ML NS (CATH LAB) 3000 UNIT IV (08:45)
[2025-09-29] MEDS: 0.9 % SODIUM CHLORIDE 500 ML 25 ML IV (08:45)
[2025-09-29] MEDS: HEPARIN 1,000 UNITS/ML 10ML VIAL (CATH LAB) 5000 UNIT IV (08:46)
[2025-09-29] MEDS: VERAPAMIL 2.5MG/ML 2ML VIAL 2.5 MG IV (08:47)
[2025-09-29] MEDS: FENTANYL 100MCG/2ML VIAL 50 MCG IV (09:33)
[2025-09-29] MEDS: MIDAZOLAM HCL 1MG/ML 5ML VIAL 1 MG IV (09:33)
--- NOTE | 2025-09-29 10:51 | SUR.PHASEII ---
PATIENT TAKEN TO POST OP FOR RECOVERY, REPORT MEREDITH LUKE, FAMILY UPDATED AND TAKEN TO POST OP
[2025-09-29 12:09] LABS: CATHL Activated Clotting Time 249 SEC (74-125)
[2025-09-29] MEDS: IOPAMIDOL-370 (76%);100ML BOTTLE 80 ML IV (12:45)
== END 2025-09-29 13:25 | disposition home or self-care (01) ==
PROVIDERS: PCP Internal Medicine Adolescent Medicine; Visit Provider Internal Medicine
PROC: 4A023N7 Measurement of Cardiac Sampling and Pressure, Left Heart, Percutaneous Approach (ICD-10-PCS; CPT 93452; principal; 2025-09-29 07:30)
DX: I25.119 Atherosclerotic heart disease of native coronary artery with unspecified angina pectoris (principal); Z95.5 Presence of coronary angioplasty implant and graft; Z88.1 Allergy status to other antibiotic agents; Z79.4 Long term (current) use of insulin; Z79.899 Other long term (current) drug therapy; K21.9 Gastro-esophageal reflux disease without esophagitis; I08.1 Rheumatic disorders of both mitral and tricuspid valves; F17.210 Nicotine dependence, cigarettes, uncomplicated; E11.9 Type 2 diabetes mellitus without complications; I10 Essential (primary) hypertension; E78.5 Hyperlipidemia, unspecified
CPT/HCPCS: 92978; 93458; 80048; 85025; 85347; 99152; C1725; C1760; C1769; J1200; J1644; J2003; J3010; J7040; Q9967